=== PATIENT | male | born 1935 | race Caucasian/White ===

== ENCOUNTER 2018-06-25 13:09 | Inpatient (IN) | payer MEDICARE, MEDICAID ==
[~2018-06-25] VITALS: Ht 182.9 cm; Wt 88.5 kg
[2018-06-25] MEDS ORDERED: Sodium Chloride 500ML 500 ML IV ONE (13:28)
[2018-06-25] MEDS ORDERED: Morphine Sulfate 2mg/ml Inj IVP ONE (13:30)
[2018-06-25] MEDS ORDERED: Isovue-300 100ml vial INJ PRN (13:30)
[2018-06-25 13:54] VITALS: BP 106/64
[2018-06-25 14:21] LABS: HEMATOCRIT 41.4 % (42.0-52.0); HEMOGLOBIN 13.9 G/DL (14.2-18.0); MEAN CORPUSCULAR VOLUME 92 FL (80-99); PLATELET COUNT 175 K/UL (150-450); RED BLOOD COUNT 4.51 M/UL (4.70-6.10)
[2018-06-25 14:23] LABS: WHITE BLOOD COUNT 34.6 K/UL (4.8-10.8)
[2018-06-25 14:41] LABS: ANION GAP 13 mmol/L (5-15); BLOOD UREA NITROGEN 44 mg/dL (7-18); CALCIUM 9.1 MG/DL (8.5-10.1); CARBON DIOXIDE 24 MMOL/L (21-32); CHLORIDE 100 MMOL/L (98-107); CREATININE 3.8 MG/DL (0.55-1.30); POTASSIUM 3.8 MMOL/L (3.5-5.1); SODIUM 137 MMOL/L (136-145)
[2018-06-25 14:45] LABS: ALANINE AMINOTRANSFERASE 13 U/L (12-78); ALBUMIN 2.5 G/DL (3.4-5.0); ALBUMIN/GLOBULIN RATIO 0.7 (1.0-2.7); ALKALINE PHOSPHATASE 81 U/L (46-116); ASPARTATE AMINO TRANSFERASE 10 U/L (15-37); BILIRUBIN,TOTAL 0.5 MG/DL (0.2-1.0)
[2018-06-25] MEDS ORDERED: CYMBALTA30 MG ORAL (14:46)
[2018-06-25] MEDS ORDERED: DEPAKOTE ER500 MG ORAL (14:46)
[2018-06-25] MEDS ORDERED: VITAMIN B-1100 MG ORAL (14:46)
[2018-06-25] MEDS ORDERED: SPIRONOLACTONE25 MG ORAL (14:46)
[2018-06-25] MEDS ORDERED: ROBAXIN-750750 MG PO ×2 (14:46→20:29)
[2018-06-25] MEDS ORDERED: ACIDOPHILUS CA1 EACH ORAL (14:46)
[2018-06-25] MEDS ORDERED: COLACE100 MG ORAL (14:46)
[2018-06-25] MEDS ORDERED: DUONEB 0.5-3(2.53 ML HHN ×2 (14:46→17:56)
[2018-06-25] MEDS ORDERED: ASPIR 8181 MG ORAL (14:46)
[2018-06-25] MEDS ORDERED: PROTONIX40 MG ORAL (14:46)
[2018-06-25] MEDS ORDERED: MULTIVITAMINS1 EAC8 ORAL (14:46)
[2018-06-25] MEDS ORDERED: RISPERDAL0.5 MG ORAL (14:46)
[2018-06-25] MEDS ORDERED: VITAMIN D250000 UNI1 ORAL ×2 (14:46→20:29)
[2018-06-25] MEDS ORDERED: SENOKOT8.6 MG PO (14:46)
[2018-06-25] MEDS ORDERED: CATAPRES0.1 MG ORAL ×3 (14:46→17:52)
[2018-06-25] MEDS ORDERED: TAMSULOSIN HCL0.4 MG ORAL (14:46)
[2018-06-25] MEDS ORDERED: ACETAMINOPHEN325 M1 ORAL ×2 (14:46→17:52)
[2018-06-25 15:00] VITALS: BP 115/69
--- NOTE | 2018-06-25 16:09 | Diagnostic Imaging Report ---
Indication: Abdominal pain since last night Technique: Spiral acquisitions obtained through the abdomen and pelvis. No oral contrast utilized, per emergency room physician request No IV contrast utilized, per referring physician request.. Multiplanar reconstructions were generated. Total dose length product 1005.6 mGycm. CTDIvol(s) 18.16 mGy. Dose reduction achieved using automated exposure control Comparison: None Findings: The prostate is markedly enlarged, measuring 7.4 cm transverse by 7.3 cm AP 9 cm craniocaudad. It protrudes slightly into the bladder floor. The bladder is massively distended, dome extending well above the umbilicus. There is only minimal if any bladder wall thickening. There is bilateral mild to moderate hydronephrosis and proximal hydroureter. However, the hydroureter bilaterally only appears extend to the level of the false pelvis, where there is some inflammatory stranding and both ureters be, normal in caliber distal. No definite mass or other obstructive abnormality is seen at the transition point on either side. The lack of IV contrast limits assessment of the renal parenchyma. There is a left lower pole cyst. No other renal parenchymal mass or cyst is demonstrated. There is considerable edema surrounding the proximal penile shaft, particularly dorsally, as well as some infiltration of the adjacent subcutaneous fat. Lack of enteric contrast limits assessment of the GI tract. The appendix is not clearly demonstrated, but there are no findings to suggest acute appendicitis. There is questionably wall thickening of the proximal descending colon, of the distal descending colon and sigmoid, and especially of the rectum. There is considerable infiltration of the perirectal fat. No definite evidence of diverticulosis or diverticulitis. No definite small bowel distention. The distal esophagus, stomach, duodenum are grossly unremarkable. The lack of IV contrast limits assessment of the other solid organs. The gallbladder is somewhat distended, but there is no wall thickening or pericholecystic inflammation. The liver, bile ducts are unremarkable. The pancreas is atrophic. The spleen and adrenals are unremarkable. There is marked abnormality of the lumbar spine. There is essentially obliteration and ankylosis of the L3-4 disc, and obliteration and ankylosis of a significant portion of the L2-3 disc. There is probably a compression fracture deformity of L4 and possibly of L3, although the lack of demarcation between the vertebral body and disc makes this difficult to assess. There is also some scoliotic deformity and lateral subluxation at these levels. There is considerable degenerative spondylosis elsewhere as well, as well as likely spinal stenosis of the lower lumbar spine. The included lung bases demonstrate some scarring, atelectasis, bronchiectasis, and a calcified granuloma on the left There is mild generalized edema of the subcutaneous, peritoneal, and retroperitoneal fat. Impression: Mild to moderate hydronephrosis and proximal hydroureter, massively distended bladder, and prostatomegaly. The hydronephrosis and hydroureter are probably due to chronic bladder outlet obstruction. However, the finding of normal caliber ureters distally bilaterally is somewhat unusual for this, and the possibility of unusual retroperitoneal pathology causing bilateral mid ureteral obstruction should also be considered Unusual cailin-penile edema. This could represent cellulitis or inflammation of the lower urinary tract, among other possibilities. Correlate with clinical findings Limited assessment of the GI tract, due to lack of enteric contrast administration Distal rectal wall thickening and infiltration of the perirectal fat. This could represent proctitis and/or tumor. Correlate with clinical and exam findings. More questionable wall thickening of the descending sigmoid colon, could indicate colitis Markedly abnormal lumbar spine, with ankylosis and obliteration of the L3-4 disc and portions of the L2-3 disc. Most likely secondary to chronic degenerative changes. Apparent deformities of L4 and L3 could represent age indeterminate compression fracture deformities or be on the basis of degenerative remodeling. There is also lumbar scoliotic deformity and likely spinal stenosis Pulmonary basilar scarring, atelectasis, bronchiectasis, and evidence of old granulomatous disease Evidence of mild anasarca The CT scanner at [facility] is accredited by the [employer] and the scans are performed using protocols designed to limit radiation exposure to as low as reasonably achievable to attain images of sufficient resolution adequate for diagnostic evaluation.
--- NOTE | 2018-06-25 16:29 | Diagnostic Imaging Report ---
Indication: Chest pain Technique: One view of the chest Comparison: none Findings: Lungs and pleural spaces are clear. Heart size is normal. There are degenerative changes of both shoulders Impression: No acute process
[2018-06-25] MEDS ORDERED: Piperacillin/Tazobactam 3.375 GM in NS 110 ML IVPB ONE (16:30)
[2018-06-25] MEDS ORDERED: Morphine Sulfate 2mg/ml Inj ONE (16:38)
--- NOTE | 2018-06-25 16:39 | Emergency Room Report ---
History of Present Illness General Chief Complaint: Abdominal Pain Source: Patient, Medical Record Present Illness HPI 83-year-old male presents ED for evaluation. Complaining of lower abdominal pain for several days now. Coming from assisted facility. Pain is sharp , 7 out of 10, nonradiating. Denies fevers or chills. Denies chest pain or shortness of breath. Denies nausea or vomiting. No other aggravating relieving factors. Denies any other associated symptoms Allergies: Coded Allergies: No Known Allergies (Unverified , 06/25/18) Patient History Past Medical History: HTN, seizures Pertinent Family History: none Social History: Denies: smoking, alcohol use, drug use Immunizations: UTD Reviewed Nursing Documentation: PMH: Agreed; PSxH: Agreed Nursing Documentation-PMH Past Medical History: No History, Except For Hx Hypertension: Yes Hx Seizures: Yes Review of Systems All Other Systems: negative except mentioned in HPI Physical Exam Vital Signs Date Time Temp Pulse Resp B/P (MAP) Pulse Ox O2 Delivery O2 Flow Rate FiO2 06/25/18 13:12 97.9 82 24 99/61 98 Room Air 97.9 Sp02 EP Interpretation: reviewed, normal General Appearance: no apparent distress, alert, GCS 15, non-toxic Head: normocephalic, atraumatic Eyes: bilateral eye normal inspection, bilateral eye PERRL ENT: hearing grossly normal, normal pharynx, no angioedema, normal voice Neck: full range of motion, supple/symm/no masses Respiratory: chest non-tender, lungs clear, normal breath sounds, speaking full sentences Cardiovascular #1: regular rate, rhythm, no edema Cardiovascular #2: 2+ carotid (R), 2+ carotid (L), 2+ radial (R), 2+ radial (L) , 2+ dorsalis pedis (R), 2+ dorsalis pedis (L) Gastrointestinal: normal bowel sounds, soft, non-distended, no guarding, no rebound, tenderness - surpapubic Rectal: deferred Genitourinary: normal inspection, no CVA tenderness Musculoskeletal: back normal, gait/station normal, normal range of motion, non- tender Neurologic: alert, oriented x3, responsive, motor strength/tone normal, sensory intact, speech normal Psychiatric: judgement/insight normal, memory normal, mood/affect normal, no suicidal/homicidal ideation Reflexes: 3+ bicep (R), 3+ bicep (L), 3+ tricep (R), 3+ tricep (L), 3+ knee (R) , 3+ knee (L) Skin: normal color, no rash, warm/dry, well hydrated Lymphatic: no adenopathy Medical Decision Making Diagnostic Impression: Primary Impression: Bladder outlet obstruction Additional Impressions: Hydronephrosis Qualified Codes: N13.30 - Unspecified hydronephrosis Renal insufficiency Colitis ER Course Hospital Course 83-year-old male presents ED for abdominal pain Differential diagnoses include: BPH, cystitis, pyelonephritis, kidney stone Clinical course 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 After initial history and physical I ordered labs, IV fluids, UA, pain medication and CT scan Labs - marked leukocytosis, Hb/Hct stable, BUN/Cr elevated Patient states too painful for Hernandez catheter. Condom catheter placed CT abdomen and pelvis - significant hydronephrosis + hydroureter. findings consistent with chronic bladder outlet dysfunction. possible peripenile edema suggesting of cellulitis. proctitis/colitis EKG - NSR, some PVCS, no acute ischeic changes interpreted by me Given antibiotics. given IVFS Case discussed with Dr. Portillo and he agreed to accept the patient to his service for further care and support I feel this is a highly complex case requiring extensive working including EKG/ Rhythm strip, Xray/CT/US, Blood/urine lab work, repeat exams while in ED, and administration of strong opiates/narcotics for pain control, admission to hospital or close patient follow up. Diagnosis - bladder outlet obstrution, hydronephrosis, renal insufficiency, colitis Patient admitted to [facility] in serious condition Labs Test 06/25/18 13:52 06/25/18 14:50 White Blood Count 34.6 K/UL (4.8-10.8) Red Blood Count 4.51 M/UL (4.70-6.10) Hemoglobin 13.9 G/DL (14.2-18.0) Hematocrit 41.4 % (42.0-52.0) Mean Corpuscular Volume 92 FL (80-99) Mean Corpuscular Hemoglobin 30.9 PG (27.0-31.0) Mean Corpuscular Hemoglobin Concent 33.7 G/DL (32.0-36.0) Red Cell Distribution Width 12.0 % (11.6-14.8) Platelet Count 175 K/UL (150-450) Mean Platelet Volume 5.8 FL (6.5-10.1) Neutrophils (%) (Auto) % (45.0-75.0) Lymphocytes (%) (Auto) % (20.0-45.0) Monocytes (%) (Auto) % (1.0-10.0) Eosinophils (%) (Auto) % (0.0-3.0) Basophils (%) (Auto) % (0.0-2.0) Differential Total Cells Counted 100 Neutrophils % (Manual) 60 % (45-75) Lymphocytes % (Manual) 32 % (20-45) Monocytes % (Manual) 7 % (1-10) Eosinophils % (Manual) 0 % (0-3) Basophils % (Manual) 0 % (0-2) Band Neutrophils 1 % (0-8) Reactive Lymphocytes Occasional Platelet Estimate Adequate Platelet Morphology Normal Red Blood Cell Morphology Normal Sodium Level 137 MMOL/L (136-145) Potassium Level 3.8 MMOL/L (3.5-5.1) Chloride Level 100 MMOL/L (98-107) Carbon Dioxide Level 24 MMOL/L (21-32) Anion Gap 13 mmol/L (5-15) Blood Urea Nitrogen 44 mg/dL (7-18) Creatinine 3.8 MG/DL (0.55-1.30) Estimat Glomerular Filtration Rate mL/min (>60) Glucose Level 170 MG/DL (74-106) Calcium Level 9.1 MG/DL (8.5-10.1) Total Bilirubin 0.5 MG/DL (0.2-1.0) Aspartate Amino Transf (AST/SGOT) 10 U/L (15-37) Alanine Aminotransferase (ALT/SGPT) 13 U/L (12-78) Alkaline Phosphatase 81 U/L (46-116) Total Protein 6.1 G/DL (6.4-8.2) Albumin 2.5 G/DL (3.4-5.0) Globulin 3.6 g/dL Albumin/Globulin Ratio 0.7 (1.0-2.7) Lipase 72 U/L (73-393) Lactic Acid Level 1.20 mmol/L (0.4-2.0) EKG Diagnostic Results Rate: normal Rhythm: NSR ST Segments: no acute changes ASA given to the pt in ED: No Rhythm Strip Diag. Results EP Interpretation: yes Rhythm: NSR, no PVC's Chest X-Ray Diagnostic Results Chest X-Ray Diagnostic Results : Chest X-Ray Ordered: Yes # of Views/Limited/Complete: 1 View Indication: Other - abd pain EP Interpretation: Yes Interpretation: no consolidation, no effusion, no pneumothorax, no acute cardiopulmonary disease Impression: No acute disease Electronically Signed by: Electronically signed by Boyd Avina MD CT/MRI/US Diagnostic Results CT/MRI/US Diagnostic Results : Imaging Test Ordered: CT A/P Impression chronic bladder outlet obstruction bilateral hydronephrosis and hydroureter peripenile edema suggesting cellulitis proctitis/colitis Last Vital Signs Date Time Temp Pulse Resp B/P (MAP) Pulse Ox O2 Delivery O2 Flow Rate FiO2 06/25/18 13:54 101 21 106/64 96 Room Air 06/25/18 13:12 97.9 97.9 Status: improved Disposition: ADMITTED INPATIENT Condition: Serious Referrals: NON PHYSICIAN (PCP) Boyd Avina MD Jun 25, 2018 16:39
[2018-06-25 17:00] VITALS: BP 97/57
--- NOTE | 2018-06-25 17:28 | Consultation ---
Consult Note Consult Note asked to eval at the request of Dr Villa 83-year-old male presents ED for evaluation. Complaining of lower abdominal pain for several days now. Coming from custodial facility. Pain is sharp , 7 out of 10, nonradiating. Denies fevers or chills. Denies chest pain or shortness of breath. Denies nausea or vomiting. No other aggravating relieving factors. Denies any other associated symptoms No Known Allergies (Unverified , 06/25/18) Past Medical History: HTN, seizures Past Medical History: No History, Except For Hx Hypertension: Yes Hx Seizures: Yes lad: WBCs 94611 Cr 3.8 normal K Assessment/Plan CT: Mild to moderate hydronephrosis and proximal hydroureter, massively distended bladder, and prostatomegaly. The hydronephrosis and hydroureter are probably due to chronic bladder outlet obstruction. However, the finding of normal caliber ureters distally bilaterally is somewhat unusual for this, and the possibility of unusual retroperitoneal pathology causing bilateral mid ureteral obstruction should also be considered Renal failure due to Obstruction Need Uro eval and preston yareli to relief obstruction and pressure Discussed with Dr Metcalf and Daisy Uro will be called IV fluids after preston in Shaun Khan MD Jun 25, 2018 17:28
[2018-06-25] MEDS ORDERED: Lidocaine HCl 2% Jelly 5ml Tube TOPIC ONE (17:45)
[2018-06-25] MEDS ORDERED: ASPIRIN81 MG ORAL (17:53)
[2018-06-25] MEDS ORDERED: DIVALPROEX SOD500 MG PO (17:55)
[2018-06-25 18:00] VITALS: BP 110/52
[2018-06-25] MEDS ORDERED: MINERAL OIL EN133 ML RC (18:01)
[2018-06-25] MEDS ORDERED: B-12500 MC1 PO (18:01)
[2018-06-25 18:27] LABS: APPEARANCE,URINE CLEAR; BILIRUBIN, URINE NEGATIVE (NEGATIVE); GLUCOSE, URINE (UA) NEGATIVE (NEGATIVE); KETONES,URINE NEGATIVE (NEGATIVE); LEUKOCYTE ESTERASE ,URINE 1+ (NEGATIVE); NITRITE,URINE NEGATIVE (NEGATIVE); PH,URINE 5 (4.5-8.0); PROTEIN,URINE NEGATIVE (NEGATIVE); UROBILINOGEN,URINE NORMAL MG/DL (0.0-1.0)
[2018-06-25 18:34] LABS: COLOR,URINE YELLOW
[2018-06-25 20:00] VITALS: BP 97/60
[2018-06-25] MEDS ORDERED: Albuterol/Ipratropium 3ml neb HHN PRN (21:00)
[2018-06-25] MEDS ORDERED: Vitamin D 50,000 units cap ORAL SCH (21:00)
[2018-06-25] MEDS ORDERED: Tamsulosin 0.4mg cap ORAL SCH ×2 (21:00)
[2018-06-25] MEDS ORDERED: Fleet's Mineral Oil Enema RECTAL PRN (21:00)
--- NOTE | 2018-06-25 21:45 | Consultation ---
DATE OF CONSULTATION: 06/25/2018 CONSULTING PHYSICIAN: Flaquito Cruz M.D. REFERRING PHYSICIAN: Blaine Villa M.D. REASON FOR EVALUATION: For evaluation of retention, hydronephrosis, and renal failure. HISTORY OF PRESENT ILLNESS: This is an 83-year-old male, who is a resident of a [place] [facility]. He was brought to the hospital because of lower abdominal pain. He was noted to have acute kidney injury. Apparently, he has a baseline chronic kidney disease also. CT scan showed enlarged prostate with bladder distention and bilateral hydronephrosis. I did speak with the ER physician, who was able to pass a 16-Sudanese coude catheter and there was return of over liter of urine. Rest of the history was obtained from the chart. PAST MEDICAL HISTORY: Significant for above, hypertension and seizures. PAST SURGICAL HISTORY: Unknown. CURRENT MEDICATIONS: Here in the hospital, he did get a dose of antibiotics, Zosyn. ALLERGIES: No known drug allergies. SOCIAL HISTORY: Resident of a [place] [facility] facility. FAMILY HISTORY: Unable to obtain. FAMILY HISTORY: Unable to obtain. PHYSICAL EXAMINATION: GENERAL: An elderly male, confused. VITAL SIGNS: Temperature is 97.9, blood pressure is 110/52, pulse is 101, and temperature is 97.9. HEENT: Normocephalic. NECK: Supple. ABDOMEN: Soft. Hernandez is in place. A 16-Sudanese urine is slightly blood tinged. The patient does appear to have a paraphimosis. EXTREMITIES: Slightly contracted. LABORATORY DATA: UA shows 5 to 10 rbc's and 2 to 4 wbc's. BUN is 44 and creatinine 3.8. I am not sure what his baseline creatinine is. DIAGNOSTIC IMAGING STUDIES: The patient had a CT scan of the abdomen and pelvis. There was evidence of [id number] bilateral hydronephrosis and massively distended bladder. The distal ureter did not appear to be significantly dilated. IMPRESSION: 1. Urinary retention. 2. Benign prostatic hypertrophy. 3. Possible neurogenic bladder. 4. Renal insufficiency, which appears to be acute on chronic. 5. Hematuria. 6. Mild pyuria. 7. Hydronephrosis. 8. Paraphimosis. PLAN AND DISCUSSION: Again, Hernandez catheter is in place. It is draining urine. It is slightly blood tinged, but it is clearing. No active bleeding at this time. I did reduce the paraphimosis at the bedside. At this time, it was recommend keeping the Hernandez catheter indwelling with monitoring of renal function. He may have a postobstructive diuresis and may need fluids. I will also add Flomax and finasteride. He can have a cystoscopy in the future. Thank you for this consultation. Flaquito Cruz M.D. DR: LAW JOB#: [id number] CC:
[2018-06-25] MEDS: Depakote 500mg tab ORAL SCH (21:59)
--- NOTE | 2018-06-25 23:26 | History and Physical ---
History of Present Illness General Date patient seen: Jun 25, 2018 Time patient seen: 21:00 Reason for Hospitalization: Abdominal Pain Present Illness HPI 83 yo man transferred from SNF for lower abdominal pain x 2-3 days Noted to be in urinary retention in the ED with CT scan showing hydronephrosis. Urology consulted and Hernandez placed after some difficulty secondary to swelling Notes improved abdominal discomfort No chest pain or dyspnea Poor historian PMHx: Dementia, CKD, HTN, Seizures, Depression PSHx: Unknown FHx: Reviewed; not pertinent for this encounter SHx: No tobacco/EtOH Resident of SNF Allergies: Coded Allergies: No Known Allergies (Unverified , 06/25/18) Medication History Scheduled Acidophilus/Pectin, [place] (Acidophilus [place]), 1 TAB ORAL BID, (Reported) Aspirin* (Aspirin*), 81 MG ORAL DAILY, (Reported) Divalproex Sodium (Divalproex Sodium), 500 MG PO BID, (Reported) Docusate Sodium* (Colace*), 100 MG ORAL DAILY, (Reported) Duloxetine Hcl* (Cymbalta*), 30 MG ORAL DAILY, (Reported) Ergocalciferol (Vitamin D2)* (Vitamin D*), 50,000 UNIT ORAL ONCE A WEEK, ( Reported) Ergocalciferol (Vitamin D2)* (Vitamin D*), 50,000 UNIT ORAL ONCE A WEEK, ( Reported) Methocarbamol* (Robaxin-750*), 750 MG PO BID, (Reported) Multivitamin With Minerals (Multivitamins With Minerals*), 1 TAB ORAL DAILY, ( Reported) Pantoprazole* (Protonix*), 40 MG ORAL DAILY, (Reported) Risperidone* (Risperdal*), 0.5 MG ORAL DAILY, (Reported) Sennosides (Senokot), 8.6 MG PO BID, (Reported) Spironolactone* (Aldactone*), 25 MG ORAL DAILY, (Reported) Tamsulosin Hcl (Tamsulosin Hcl*), 0.4 MG ORAL BEDTIME, (Reported) Thiamine Hcl* (Vitamin B-1*), 100 MG ORAL DAILY, (Reported) Scheduled PRN Acetaminophen* (Acetaminophen 325MG Tablet*), 650 MG ORAL Q4H PRN for For Pain, (Reported) Acetaminophen* (Acetaminophen 325MG Tablet*), 650 MG ORAL Q4H PRN for fever T> 101F, (Reported) Clonidine Hcl* (Catapres*), 0.1 MG ORAL EVERY 8 HOURS PRN for SBP>170 or DBP>100 , (Reported) Ipratropium/Albuterol Sulfate (DuoNeb 0.5-3(2.5)mg/3ml), 3 ML HHN Q6HR PRN for Shortness of Breath, (Reported) Mineral Oil (Mineral Oil Enema), 133 ML RC DAILY PRN for Constipation, (Reported ) Discontinued Medications Cyanocobalamin (Vitamin B-12) (B-12), 500 MCG PO DAILY, (Reported) Discontinued Reason: MD discontinued med Methocarbamol* (Robaxin-750*), 750 MG PO BID, (Reported) Discontinued Reason: MD discontinued med Patient History Limited by: medical condition History Provided By: Patient, EMS Healthcare decision maker N Resuscitation status Full Code Advanced Directive on File Review of Systems Constitutional: Reports: malaise, weakness Eye: Reports: no symptoms ENT: Reports: no symptoms Respiratory: Reports: no symptoms Cardiovascular: Reports: no symptoms Gastrointestinal: Reports: abdominal pain, nausea Genitourinary: Reports: retention Musculoskeletal: Reports: no symptoms Skin: Reports: no symptoms Psychiatric: Reports: see HPI, depressed feelings Neurological: Reports: no symptoms Endocrine: Reports: no symptoms Hematologic/Lymphatic: Reports: no symptoms All Other Systems: negative except mentioned in HPI Physical Exam General Appearance: confused, mild distress Lines, tubes and drains: peripheral HEENT: normocephalic, atraumatic, anicteric, PERRL Neck: non-tender, supple Respiratory/Chest: chest wall non-tender, lungs clear Cardiovascular/Chest: normal peripheral pulses, normal rate, regular rhythm Abdomen: normal bowel sounds, soft, no mass Genitourinary/Rectal: blood at urethral meatus Extremities: normal range of motion, non-tender Skin Exam: normal pigmentation, warm/dry Neurologic: alert Lymphatic: anterior cervical Musculoskeletal: atrophy Last 24 Hour Vital Signs Date Time Temp Pulse Resp B/P (MAP) Pulse Ox O2 Delivery O2 Flow Rate FiO2 06/25/18 19:30 Nasal Cannula 2.0 06/25/18 18:54 97.9 90 21 110/52 95 Room Air 208.2 06/25/18 18:00 90 21 110/52 95 Room Air 06/25/18 17:00 88 21 97/57 95 Room Air 06/25/18 16:39 97.9 06/25/18 15:00 94 21 115/69 97 Room Air 06/25/18 13:54 101 21 106/64 96 Room Air 06/25/18 13:12 97.9 82 24 99/61 98 Room Air 97.9 Laboratory Tests Test 06/25/18 13:52 06/25/18 14:50 06/25/18 17:50 White Blood Count 34.6 K/UL (4.8-10.8) *H Red Blood Count 4.51 M/UL (4.70-6.10) L Hemoglobin 13.9 G/DL (14.2-18.0) L Hematocrit 41.4 % (42.0-52.0) L Mean Corpuscular Volume 92 FL (80-99) Mean Corpuscular Hemoglobin 30.9 PG (27.0-31.0) Mean Corpuscular Hemoglobin Concent 33.7 G/DL (32.0-36.0) Red Cell Distribution Width 12.0 % (11.6-14.8) Platelet Count 175 K/UL (150-450) Mean Platelet Volume 5.8 FL (6.5-10.1) L Neutrophils (%) (Auto) % (45.0-75.0) Lymphocytes (%) (Auto) % (20.0-45.0) Monocytes (%) (Auto) % (1.0-10.0) Eosinophils (%) (Auto) % (0.0-3.0) Basophils (%) (Auto) % (0.0-2.0) Differential Total Cells Counted 100 Neutrophils % (Manual) 60 % (45-75) Lymphocytes % (Manual) 32 % (20-45) Monocytes % (Manual) 7 % (1-10) Eosinophils % (Manual) 0 % (0-3) Basophils % (Manual) 0 % (0-2) Band Neutrophils 1 % (0-8) Reactive Lymphocytes Occasional Platelet Estimate Adequate Platelet Morphology Normal Red Blood Cell Morphology Normal Sodium Level 137 MMOL/L (136-145) Potassium Level 3.8 MMOL/L (3.5-5.1) Chloride Level 100 MMOL/L (98-107) Carbon Dioxide Level 24 MMOL/L (21-32) Anion Gap 13 mmol/L (5-15) Blood Urea Nitrogen 44 mg/dL (7-18) H Creatinine 3.8 MG/DL (0.55-1.30) H Estimat Glomerular Filtration Rate mL/min (>60) Glucose Level 170 MG/DL (74-106) H Calcium Level 9.1 MG/DL (8.5-10.1) Total Bilirubin 0.5 MG/DL (0.2-1.0) Aspartate Amino Transf (AST/SGOT) 10 U/L (15-37) L Alanine Aminotransferase (ALT/SGPT) 13 U/L (12-78) Alkaline Phosphatase 81 U/L (46-116) Total Protein 6.1 G/DL (6.4-8.2) L Albumin 2.5 G/DL (3.4-5.0) L Globulin 3.6 g/dL Albumin/Globulin Ratio 0.7 (1.0-2.7) L Lipase 72 U/L (73-393) L Lactic Acid Level 1.20 mmol/L (0.4-2.0) Urine Color Yellow Urine Appearance Clear Urine pH 5 (4.5-8.0) Urine Specific [place] 1.010 (1.005-1.035) Urine Protein Negative (NEGATIVE) Urine Glucose (UA) Negative (NEGATIVE) Urine Ketones Negative (NEGATIVE) Urine Occult Blood 5+ (NEGATIVE) H Urine Nitrite Negative (NEGATIVE) Urine Bilirubin Negative (NEGATIVE) Urine Urobilinogen Normal MG/DL (0.0-1.0) Urine Leukocyte Esterase 1+ (NEGATIVE) H Urine RBC 5-10 /HPF (0 - 0) H Urine WBC 2-4 /HPF (0 - 0) Urine Squamous Epithelial Cells None /LPF (NONE/OCC) Urine Bacteria Few /HPF (NONE) Height (Feet): 6 Height (Inches): 10.00 Weight (Pounds): 200 Medications Current Medications Medications (Trade) Dose Ordered Sig/Pérez Route PRN Reason Start Time Stop Time Status Last Admin Dose Admin Albuterol/ Ipratropium (Albuterol/ Ipratropium) 3 ml Q6H PRN HHN Shortness of Breath 06/25/18 21:00 06/30/18 20:59 Aspirin (ASA) 81 mg DAILY ORAL 06/26/18 09:00 07/26/18 08:59 Clonidine HCl (Catapres Tab) 0.1 mg Q8H PRN ORAL SBP>170 or DBP>100 06/25/18 21:00 07/25/18 20:59 Divalproex Sodium (Depakote) 500 mg BID ORAL 06/25/18 21:11 07/25/18 21:10 06/25/18 21:59 Docusate Sodium (Colace) 100 mg DAILY ORAL 06/26/18 09:00 07/26/18 08:59 Duloxetine HCl (Cymbalta) 30 mg DAILY ORAL 06/26/18 09:00 07/26/18 08:59 Ergocalciferol (Drisdol) 50,000 intlu ONCE A WEEK ORAL 07/02/18 09:00 07/25/18 20:59 Finasteride (Proscar) 5 mg DAILY ORAL 06/26/18 09:00 07/26/18 08:59 Iopamidol (Isovue-300 100ml) 100 ml NOW PRN INJ Radiology Procedure 06/25/18 13:30 Mineral Oil (Fleet's Mineral Oil Enema) 133 ml DAILYPRN PRN RECTAL Constipation 06/25/18 21:00 07/25/18 20:59 Multivitamins Therapeutic (Therapeutic Multivitamin) 1 ea DAILY ORAL 06/26/18 09:00 07/26/18 08:59 Pantoprazole (Protonix) 40 mg DAILY ORAL 06/26/18 09:00 07/26/18 08:59 Risperidone (RisperDAL) 0.5 mg Q24H ORAL 06/26/18 09:00 07/26/18 08:59 Sennosides (Senokot) 1 tab BID ORAL 06/26/18 09:00 07/26/18 08:59 Spironolactone (Aldactone) 25 mg DAILY ORAL 06/26/18 09:00 07/26/18 08:59 Tamsulosin HCl (Flomax) 0.4 mg BID ORAL 06/26/18 09:00 07/25/18 20:59 Thiamine HCl (Vitamin B1) 100 mg DAILY ORAL 06/26/18 09:00 07/26/18 08:59 Assessment/Plan Status: not improved Status Narrative 83 yo man with dementia, abdominal pain, SNF resident found to have MOISES on CKD and hydronephrosis on CT Urology input and assistance appreciated- Hernandez catheter placed in ED Assessment/Plan 1) MOISES on CKD -Nephrology input appreciated follow electrolytes and creatinine after catheterization replete as needed avoid nephorotoxins/renally dose meds 2) HTN -continue meds 3): Seizure disorder -continue meds 4)Depression/cognitive impairment -Psych consult DVT Prophylaxis: SCD's Code Status: Full Hospital Classification declaration: Based on this initial evaluation and depending on the patient's clinical course I anticipate that this patient will require hospitalization for at least 2-3 days Disposition: Once the patient is stable to leave the hospital I anticipate the patient will likely be discharged to the following environment: SNF I spent 70 minutes on this patients car and 36 minutes was dedicated to counseling and care coordination Time of note may not reflect time of encounter Blaine Villa M.D. Jun 25, 2018 23:26
[2018-06-26] VITALS: BP 94/52
[2018-06-26 04:00] VITALS: BP 104/73
[2018-06-26 06:36] LABS: HEMATOCRIT 35.7 % (42.0-52.0); HEMOGLOBIN 12.1 G/DL (14.2-18.0); MEAN CORPUSCULAR VOLUME 93 FL (80-99); PLATELET COUNT 146 K/UL (150-450); RED BLOOD COUNT 3.85 M/UL (4.70-6.10); RED CELL DISTRIBUTION WIDTH 11.9 % (11.6-14.8); WHITE BLOOD COUNT 19.5 K/UL (4.8-10.8)
[2018-06-26 07:20] LABS: ALANINE AMINOTRANSFERASE 7 U/L (12-78); ALBUMIN/GLOBULIN RATIO 0.6 (1.0-2.7); ALKALINE PHOSPHATASE 62 U/L (46-116); ANION GAP 9 mmol/L (5-15); ASPARTATE AMINO TRANSFERASE 9 U/L (15-37); BILIRUBIN,TOTAL 0.3 MG/DL (0.2-1.0); BLOOD UREA NITROGEN 31 mg/dL (7-18); CALCIUM 8.5 MG/DL (8.5-10.1); CARBON DIOXIDE 27 MMOL/L (21-32); CHLORIDE 109 MMOL/L (98-107); CHOLESTEROL 133 MG/DL (< 200); CREATININE 1.5 MG/DL (0.55-1.30); FERRITIN 223 NG/ML (8-388); HDL CHOLESTEROL 30 MG/DL (40-60); POTASSIUM 3.5 MMOL/L (3.5-5.1); SODIUM 145 MMOL/L (136-145); TRIGLYCERIDES 99 MG/DL (30-150)
[2018-06-26 07:37] LABS: % IRON SATURATION 49 % (15-50); IRON 58 ug/dL (50-175); TOTAL IRON BINDING CAPACITY 119 ug/dL (250-450)
[2018-06-26 07:56] LABS: CREATINE KINASE 18 U/L (26-308); GAMMA GLUTAMYL TRANSPEPTIDASE 14 U/L (5-85)
[2018-06-26 08:00] VITALS: BP 108/58
--- NOTE | 2018-06-26 08:56 | Urology Progress Note ---
Assessment/Plan Assessment/Plan 1. Urinary retention. 2. Benign prostatic hypertrophy. 3. Possible neurogenic bladder. 4. Renal insufficiency, which appears to be acute on chronic, improved. 5. Hematuria. 6. Mild pyuria. 7. Hydronephrosis. 8. Paraphimosis. keep preston hand irrigated and do PRN monitor renal fxn cont with flomax and proscar cysto later Subjective Allergies: Coded Allergies: No Known Allergies (Unverified , 06/25/18) Subjective all noted, confused Objective Last 24 Hour Vital Signs Date Time Temp Pulse Resp B/P (MAP) Pulse Ox O2 Delivery O2 Flow Rate FiO2 06/26/18 08:00 97.5 80 18 108/58 (75) 98 97.5 06/26/18 04:00 77 06/26/18 04:00 97.2 81 18 104/73 (83) 99 97.2 06/26/18 00:00 81 06/26/18 00:00 97.1 84 20 94/52 (66) 99 97.1 06/25/18 23:52 Nasal Cannula 2.0 28 06/25/18 20:00 87 06/25/18 20:00 97.0 80 18 97/60 (72) 99 97.0 06/25/18 19:30 Nasal Cannula 2.0 06/25/18 18:54 97.9 90 21 110/52 95 Room Air 208.2 06/25/18 18:00 90 21 110/52 95 Room Air 06/25/18 17:00 88 21 97/57 95 Room Air 06/25/18 16:39 97.9 06/25/18 15:00 94 21 115/69 97 Room Air 06/25/18 13:54 101 21 106/64 96 Room Air 06/25/18 13:12 97.9 82 24 99/61 98 Room Air 97.9 Intake and Output 06/25/18 06/26/18 19:00 07:00 Intake Total 240 ml Output Total 1700 ml 1200 ml Balance -1700 ml -960 ml Intake Oral 240 ml Output Urine Total 1700 ml 1200 ml # Bowel Movements 1 Current Medications Medications (Trade) Dose Ordered Sig/Pérez Route PRN Reason Start Time Stop Time Status Last Admin Dose Admin Albuterol/ Ipratropium (Albuterol/ Ipratropium) 3 ml Q6H PRN HHN Shortness of Breath 06/25/18 21:00 06/30/18 20:59 Aspirin (ASA) 81 mg DAILY ORAL 06/26/18 09:00 07/26/18 08:59 Clonidine HCl (Catapres Tab) 0.1 mg Q8H PRN ORAL SBP>170 or DBP>100 06/25/18 21:00 07/25/18 20:59 Divalproex Sodium (Depakote) 500 mg BID ORAL 06/25/18 21:11 07/25/18 21:10 06/25/18 21:59 Docusate Sodium (Colace) 100 mg DAILY ORAL 06/26/18 09:00 07/26/18 08:59 Duloxetine HCl (Cymbalta) 30 mg DAILY ORAL 06/26/18 09:00 07/26/18 08:59 Ergocalciferol (Drisdol) 50,000 intlu ONCE A WEEK ORAL 07/02/18 09:00 07/25/18 20:59 Finasteride (Proscar) 5 mg DAILY ORAL 06/26/18 09:00 07/26/18 08:59 Iopamidol (Isovue-300 100ml) 100 ml NOW PRN INJ Radiology Procedure 06/25/18 13:30 Mineral Oil (Fleet's Mineral Oil Enema) 133 ml DAILYPRN PRN RECTAL Constipation 06/25/18 21:00 07/25/18 20:59 Multivitamins Therapeutic (Therapeutic Multivitamin) 1 ea DAILY ORAL 06/26/18 09:00 07/26/18 08:59 Pantoprazole (Protonix) 40 mg DAILY ORAL 06/26/18 09:00 07/26/18 08:59 Risperidone (RisperDAL) 0.5 mg Q24H ORAL 06/26/18 09:00 07/26/18 08:59 Sennosides (Senokot) 1 tab BID ORAL 06/26/18 09:00 07/26/18 08:59 Spironolactone (Aldactone) 25 mg DAILY ORAL 06/26/18 09:00 07/26/18 08:59 Tamsulosin HCl (Flomax) 0.4 mg BID ORAL 06/26/18 09:00 07/25/18 20:59 Thiamine HCl (Vitamin B1) 100 mg DAILY ORAL 06/26/18 09:00 07/26/18 08:59 Laboratory Tests 06/25/18 13:52: White Blood Count 34.6*H, Red Blood Count 4.51L, Hemoglobin 13.9L, Hematocrit 41.4L, Mean Corpuscular Volume 92, Mean Corpuscular Hemoglobin 30.9, Mean Corpuscular Hemoglobin Concent 33.7, Red Cell Distribution Width 12.0, Platelet Count 175, Mean Platelet Volume 5.8L, Neutrophils (%) (Auto) , Lymphocytes (%) ( Auto) , Monocytes (%) (Auto) , Eosinophils (%) (Auto) , Basophils (%) (Auto) , Differential Total Cells Counted 100, Neutrophils % (Manual) 60, Lymphocytes % ( Manual) 32, Monocytes % (Manual) 7, Eosinophils % (Manual) 0, Basophils % ( Manual) 0, Band Neutrophils 1, Reactive Lymphocytes Occasional, Platelet Estimate Adequate, Platelet Morphology Normal, Red Blood Cell Morphology Normal , Sodium Level 137, Potassium Level 3.8, Chloride Level 100, Carbon Dioxide Level 24, Anion Gap 13, Blood Urea Nitrogen 44H, Creatinine 3.8H, Estimat Glomerular Filtration Rate , Glucose Level 170H, Calcium Level 9.1, Total Bilirubin 0.5, Aspartate Amino Transf (AST/SGOT) 10L, Alanine Aminotransferase ( ALT/SGPT) 13, Alkaline Phosphatase 81, Total Protein 6.1L, Albumin 2.5L, Globulin 3.6, Albumin/Globulin Ratio 0.7L, Lipase 72L 06/25/18 14:50: Lactic Acid Level 1.20 06/25/18 17:50: Urine Color Yellow, Urine Appearance Clear, Urine pH 5, Urine Specific [place] 1.010, Urine Protein Negative, Urine Glucose (UA) Negative, Urine Ketones Negative, Urine Occult Blood 5+H, Urine Nitrite Negative, Urine Bilirubin Negative, Urine Urobilinogen Normal, Urine Leukocyte Esterase 1+H, Urine RBC 5- 10H, Urine WBC 2-4, Urine Squamous Epithelial Cells None, Urine Bacteria Few 06/26/18 05:25: White Blood Count 19.5H, Red Blood Count 3.85L, Hemoglobin 12.1L, Hematocrit 35.7L, Mean Corpuscular Volume 93, Mean Corpuscular Hemoglobin 31.3H, Mean Corpuscular Hemoglobin Concent 33.8, Red Cell Distribution Width 11.9, Platelet Count 146L, Mean Platelet Volume 6.1L, Neutrophils (%) (Auto) , Lymphocytes (%) (Auto) , Monocytes (%) (Auto) , Eosinophils (%) (Auto) , Basophils (%) (Auto) , Differential Total Cells Counted 100, Neutrophils % (Manual) 55, Lymphocytes % ( Manual) 40, Monocytes % (Manual) 3, Eosinophils % (Manual) 2, Basophils % ( Manual) 0, Band Neutrophils 0, Platelet Estimate DecreasedL, Platelet Morphology Normal, Sodium Level 145, Potassium Level 3.5, Chloride Level 109H, Carbon Dioxide Level 27, Anion Gap 9, Blood Urea Nitrogen 31H, Creatinine 1.5#H , Estimat Glomerular Filtration Rate , Glucose Level 105, Calcium Level 8.5, Total Bilirubin 0.3, Aspartate Amino Transf (AST/SGOT) 9L, Alanine Aminotransferase (ALT/SGPT) 7L, Alkaline Phosphatase 62, Total Protein 5.1L, Albumin 2.0L, Globulin 3.1, Albumin/Globulin Ratio 0.6L, Anisocytosis 1+, Hemoglobin A1c 5.9, Uric Acid 9.9H, Phosphorus Level 3.0, Magnesium Level 1.7L, Iron Level 58, Total Iron Binding Capacity 119L, Percent Iron Saturation 49, Unsaturated Iron Binding 61L, Ferritin 223, Gamma Glutamyl Transpeptidase 14, Total Creatine Kinase 18L, Pro-B-Type Natriuretic Peptide 744H, Triglycerides Level 99, Cholesterol Level 133, LDL Cholesterol 84, HDL Cholesterol 30L, Cholesterol/HDL Ratio 4.4, Vitamin B12 Level [Pending], Folate [Pending], Thyroid Stimulating Hormone (TSH) 2.086 Height (Feet): 6 Height (Inches): 10.00 Weight (Pounds): 200 Objective exam stable, urine tyrese RICHIE PERRIN Jun 26, 2018 08:56
[2018-06-26] MEDS ORDERED: Spironolactone 25mg tab ORAL SCH (09:00)
[2018-06-26] MEDS ORDERED: Docusate 100mg cap ORAL SCH (09:00)
--- NOTE | 2018-06-26 09:05 | Nephrology Progress Note ---
Assessment/Plan Problem List: (1) Bladder outlet obstruction (2) Acute renal failure (ARF) Assessment: Cr lower after preston (3) Hydronephrosis (4) Leukocytosis Assessment: declining Assessment 1. Urinary retention. 2. Benign prostatic hypertrophy. 3. Possible neurogenic bladder. 4. Renal insufficiency, which appears to be acute on chronic. 5. Hematuria. 6. Mild pyuria. 7. Hydronephrosis. 8. Paraphimosis. Plan bolus IV adjust BP meds- monitor renal parameters monitor WBCs urine culture Rocephin Subjective ROS Limited/Unobtainable: No Constitutional: Reports: malaise Objective Objective Last 24 Hour Vital Signs Date Time Temp Pulse Resp B/P (MAP) Pulse Ox O2 Delivery O2 Flow Rate FiO2 06/26/18 08:00 97.5 80 18 108/58 (75) 98 97.5 06/26/18 04:00 77 06/26/18 04:00 97.2 81 18 104/73 (83) 99 97.2 06/26/18 00:00 81 06/26/18 00:00 97.1 84 20 94/52 (66) 99 97.1 06/25/18 23:52 Nasal Cannula 2.0 28 06/25/18 20:00 87 06/25/18 20:00 97.0 80 18 97/60 (72) 99 97.0 06/25/18 19:30 Nasal Cannula 2.0 06/25/18 18:54 97.9 90 21 110/52 95 Room Air 208.2 06/25/18 18:00 90 21 110/52 95 Room Air 06/25/18 17:00 88 21 97/57 95 Room Air 06/25/18 16:39 97.9 06/25/18 15:00 94 21 115/69 97 Room Air 06/25/18 13:54 101 21 106/64 96 Room Air 06/25/18 13:12 97.9 82 24 99/61 98 Room Air 97.9 Intake and Output 06/25/18 06/26/18 19:00 07:00 Intake Total 240 ml Output Total 1700 ml 1200 ml Balance -1700 ml -960 ml Intake Oral 240 ml Output Urine Total 1700 ml 1200 ml # Bowel Movements 1 Laboratory Tests 06/25/18 13:52: White Blood Count 34.6*H, Red Blood Count 4.51L, Hemoglobin 13.9L, Hematocrit 41.4L, Mean Corpuscular Volume 92, Mean Corpuscular Hemoglobin 30.9, Mean Corpuscular Hemoglobin Concent 33.7, Red Cell Distribution Width 12.0, Platelet Count 175, Mean Platelet Volume 5.8L, Neutrophils (%) (Auto) , Lymphocytes (%) ( Auto) , Monocytes (%) (Auto) , Eosinophils (%) (Auto) , Basophils (%) (Auto) , Differential Total Cells Counted 100, Neutrophils % (Manual) 60, Lymphocytes % ( Manual) 32, Monocytes % (Manual) 7, Eosinophils % (Manual) 0, Basophils % ( Manual) 0, Band Neutrophils 1, Reactive Lymphocytes Occasional, Platelet Estimate Adequate, Platelet Morphology Normal, Red Blood Cell Morphology Normal , Sodium Level 137, Potassium Level 3.8, Chloride Level 100, Carbon Dioxide Level 24, Anion Gap 13, Blood Urea Nitrogen 44H, Creatinine 3.8H, Estimat Glomerular Filtration Rate , Glucose Level 170H, Calcium Level 9.1, Total Bilirubin 0.5, Aspartate Amino Transf (AST/SGOT) 10L, Alanine Aminotransferase ( ALT/SGPT) 13, Alkaline Phosphatase 81, Total Protein 6.1L, Albumin 2.5L, Globulin 3.6, Albumin/Globulin Ratio 0.7L, Lipase 72L 06/25/18 14:50: Lactic Acid Level 1.20 06/25/18 17:50: Urine Color Yellow, Urine Appearance Clear, Urine pH 5, Urine Specific [place] 1.010, Urine Protein Negative, Urine Glucose (UA) Negative, Urine Ketones Negative, Urine Occult Blood 5+H, Urine Nitrite Negative, Urine Bilirubin Negative, Urine Urobilinogen Normal, Urine Leukocyte Esterase 1+H, Urine RBC 5- 10H, Urine WBC 2-4, Urine Squamous Epithelial Cells None, Urine Bacteria Few 06/26/18 05:25: White Blood Count 19.5H, Red Blood Count 3.85L, Hemoglobin 12.1L, Hematocrit 35.7L, Mean Corpuscular Volume 93, Mean Corpuscular Hemoglobin 31.3H, Mean Corpuscular Hemoglobin Concent 33.8, Red Cell Distribution Width 11.9, Platelet Count 146L, Mean Platelet Volume 6.1L, Neutrophils (%) (Auto) , Lymphocytes (%) (Auto) , Monocytes (%) (Auto) , Eosinophils (%) (Auto) , Basophils (%) (Auto) , Differential Total Cells Counted 100, Neutrophils % (Manual) 55, Lymphocytes % ( Manual) 40, Monocytes % (Manual) 3, Eosinophils % (Manual) 2, Basophils % ( Manual) 0, Band Neutrophils 0, Platelet Estimate DecreasedL, Platelet Morphology Normal, Sodium Level 145, Potassium Level 3.5, Chloride Level 109H, Carbon Dioxide Level 27, Anion Gap 9, Blood Urea Nitrogen 31H, Creatinine 1.5#H , Estimat Glomerular Filtration Rate , Glucose Level 105, Calcium Level 8.5, Total Bilirubin 0.3, Aspartate Amino Transf (AST/SGOT) 9L, Alanine Aminotransferase (ALT/SGPT) 7L, Alkaline Phosphatase 62, Total Protein 5.1L, Albumin 2.0L, Globulin 3.1, Albumin/Globulin Ratio 0.6L, Anisocytosis 1+, Hemoglobin A1c 5.9, Uric Acid 9.9H, Phosphorus Level 3.0, Magnesium Level 1.7L, Iron Level 58, Total Iron Binding Capacity 119L, Percent Iron Saturation 49, Unsaturated Iron Binding 61L, Ferritin 223, Gamma Glutamyl Transpeptidase 14, Total Creatine Kinase 18L, Pro-B-Type Natriuretic Peptide 744H, Triglycerides Level 99, Cholesterol Level 133, LDL Cholesterol 84, HDL Cholesterol 30L, Cholesterol/HDL Ratio 4.4, Vitamin B12 Level 637, Folate 19.7, Thyroid Stimulating Hormone (TSH) 2.086 Height (Feet): 6 Height (Inches): 10.00 Weight (Pounds): 200 General Appearance: no apparent distress Cardiovascular: normal rate Respiratory/Chest: lungs clear Abdomen: soft Genitourinary/Rectal: other - preston in - Urine clear Shaun Khan MD Jun 26, 2018 09:05
[2018-06-26] MEDS ORDERED: cefTRIAXone 1 GM in D5W 55 ML IVPB ONE (09:15)
[2018-06-26] MEDS: DULoxetine 30mg cap ORAL SCH (09:22)
[2018-06-26] MEDS: Multivitamin w/Minerals tab ORAL SCH (09:23)
[2018-06-26] MEDS: Depakote 500mg tab ORAL SCH ×2 (09:23→18:10)
[2018-06-26] MEDS: Aspirin Baby 81mg ORAL SCH (09:23)
[2018-06-26] MEDS: Thiamine 100mg tab ORAL SCH (09:23)
[2018-06-26] MEDS: Sennosides 8.6mg ORAL SCH ×2 (09:23→18:10)
[2018-06-26] MEDS: Tamsulosin 0.4mg cap ORAL SCH ×2 (09:23→18:10)
[2018-06-26] MEDS: cefTRIAXone 1 GM in D5W 55 ML IVPB SCH (11:47)
[2018-06-26 12:00] VITALS: BP 96/47
[2018-06-26] MEDS: Docusate 100mg cap ORAL SCH ×2 (12:32→18:10)
--- NOTE | 2018-06-26 13:30 | General Progress Note ---
Assessment/Plan Status: progressing Status Narrative 83 yo man with dementia, abdominal pain, SNF resident found to have MOISES on CKD and hydronephrosis on CT Urology input and assistance appreciated- Hernandez catheter placed in ED Assessment/Plan 1) MOISES on CKD -Nephrology input appreciated follow electrolytes and creatinine after catheterization- improving replete as needed avoid nephrotoxins/renally dose meds 2) UTI/leukocytosis/rule out sepsis -pyuria and leukocytosis noted- ceftriaxone started -lactic acid normalized -wbc improving today -afebrile 2) HTN -continue meds -Nephrology assistance appreciated 3): Seizure disorder -continue meds 4)Depression/cognitive impairment -Psych consult/recs appreciated DVT Prophylaxis: scd Code status: full Hospital Classification declaration: Based on this initial evaluation, and depending on the patient's clinical course, I anticipate that this patient will require hospitalization for 2-3 days. Disposition: Once the patient is stable to leave the hospital, I anticipate the patient will likely be discharged to the following environment:SNF I spent 45 minutes on this patient's case, and 23 minutes was dedicated to counseling and/or care coordination. Time of note may not reflect time of encounter. Subjective Date patient seen: Jun 26, 2018 Time patient seen: 13:30 ROS Limited/Unobtainable: Yes Constitutional: Reports: no symptoms HEENT: Reports: no symptoms Cardiovascular: Reports: no symptoms Respiratory: Reports: no symptoms Gastrointestinal/Abdominal: Reports: poor appetite Genitourinary: Reports: burning Neurologic/Psychiatric: Reports: pre-existing deficit Endocrine: Reports: no symptoms Hematologic/Lymphatic: Reports: no symptoms Allergies: Coded Allergies: No Known Allergies (Unverified , 06/25/18) All Systems: reviewed and negative except above Subjective Events of overnight noted Chart reviewed Catheter with good urine output Symptoms improved Objective Last 24 Hour Vital Signs Date Time Temp Pulse Resp B/P (MAP) Pulse Ox O2 Delivery O2 Flow Rate FiO2 06/26/18 10:00 97 Nasal Cannula 2.0 28 06/26/18 10:00 Nasal Cannula 2.0 28 06/26/18 09:00 Nasal Cannula 2.0 06/26/18 08:00 97.5 80 18 108/58 (75) 98 97.5 06/26/18 04:00 77 06/26/18 04:00 97.2 81 18 104/73 (83) 99 97.2 06/26/18 00:00 81 06/26/18 00:00 97.1 84 20 94/52 (66) 99 97.1 06/25/18 23:52 Nasal Cannula 2.0 28 06/25/18 20:00 87 06/25/18 20:00 97.0 80 18 97/60 (72) 99 97.0 06/25/18 19:30 Nasal Cannula 2.0 06/25/18 18:54 97.9 90 21 110/52 95 Room Air 208.2 06/25/18 18:00 90 21 110/52 95 Room Air 06/25/18 17:00 88 21 97/57 95 Room Air 06/25/18 16:39 97.9 06/25/18 15:00 94 21 115/69 97 Room Air 06/25/18 13:54 101 21 106/64 96 Room Air Intake and Output 06/25/18 06/26/18 19:00 07:00 Intake Total 240 ml Output Total 1700 ml 1200 ml Balance -1700 ml -960 ml Intake Oral 240 ml Output Urine Total 1700 ml 1200 ml # Bowel Movements 1 Laboratory Tests 06/25/18 13:52: White Blood Count 34.6*H, Red Blood Count 4.51L, Hemoglobin 13.9L, Hematocrit 41.4L, Mean Corpuscular Volume 92, Mean Corpuscular Hemoglobin 30.9, Mean Corpuscular Hemoglobin Concent 33.7, Red Cell Distribution Width 12.0, Platelet Count 175, Mean Platelet Volume 5.8L, Neutrophils (%) (Auto) , Lymphocytes (%) ( Auto) , Monocytes (%) (Auto) , Eosinophils (%) (Auto) , Basophils (%) (Auto) , Differential Total Cells Counted 100, Neutrophils % (Manual) 60, Lymphocytes % ( Manual) 32, Monocytes % (Manual) 7, Eosinophils % (Manual) 0, Basophils % ( Manual) 0, Band Neutrophils 1, Reactive Lymphocytes Occasional, Platelet Estimate Adequate, Platelet Morphology Normal, Red Blood Cell Morphology Normal , Sodium Level 137, Potassium Level 3.8, Chloride Level 100, Carbon Dioxide Level 24, Anion Gap 13, Blood Urea Nitrogen 44H, Creatinine 3.8H, Estimat Glomerular Filtration Rate , Glucose Level 170H, Calcium Level 9.1, Total Bilirubin 0.5, Aspartate Amino Transf (AST/SGOT) 10L, Alanine Aminotransferase ( ALT/SGPT) 13, Alkaline Phosphatase 81, Total Protein 6.1L, Albumin 2.5L, Globulin 3.6, Albumin/Globulin Ratio 0.7L, Lipase 72L 06/25/18 14:50: Lactic Acid Level 1.20 06/25/18 17:50: Urine Color Yellow, Urine Appearance Clear, Urine pH 5, Urine Specific [place] 1.010, Urine Protein Negative, Urine Glucose (UA) Negative, Urine Ketones Negative, Urine Occult Blood 5+H, Urine Nitrite Negative, Urine Bilirubin Negative, Urine Urobilinogen Normal, Urine Leukocyte Esterase 1+H, Urine RBC 5- 10H, Urine WBC 2-4, Urine Squamous Epithelial Cells None, Urine Bacteria Few 06/26/18 05:25: White Blood Count 19.5H, Red Blood Count 3.85L, Hemoglobin 12.1L, Hematocrit 35.7L, Mean Corpuscular Volume 93, Mean Corpuscular Hemoglobin 31.3H, Mean Corpuscular Hemoglobin Concent 33.8, Red Cell Distribution Width 11.9, Platelet Count 146L, Mean Platelet Volume 6.1L, Neutrophils (%) (Auto) , Lymphocytes (%) (Auto) , Monocytes (%) (Auto) , Eosinophils (%) (Auto) , Basophils (%) (Auto) , Differential Total Cells Counted 100, Neutrophils % (Manual) 55, Lymphocytes % ( Manual) 40, Monocytes % (Manual) 3, Eosinophils % (Manual) 2, Basophils % ( Manual) 0, Band Neutrophils 0, Platelet Estimate DecreasedL, Platelet Morphology Normal, Sodium Level 145, Potassium Level 3.5, Chloride Level 109H, Carbon Dioxide Level 27, Anion Gap 9, Blood Urea Nitrogen 31H, Creatinine 1.5#H , Estimat Glomerular Filtration Rate , Glucose Level 105, Calcium Level 8.5, Total Bilirubin 0.3, Aspartate Amino Transf (AST/SGOT) 9L, Alanine Aminotransferase (ALT/SGPT) 7L, Alkaline Phosphatase 62, Total Protein 5.1L, Albumin 2.0L, Globulin 3.1, Albumin/Globulin Ratio 0.6L, Anisocytosis 1+, Hemoglobin A1c 5.9, Uric Acid 9.9H, Phosphorus Level 3.0, Magnesium Level 1.7L, Iron Level 58, Total Iron Binding Capacity 119L, Percent Iron Saturation 49, Unsaturated Iron Binding 61L, Ferritin 223, Gamma Glutamyl Transpeptidase 14, Total Creatine Kinase 18L, Pro-B-Type Natriuretic Peptide 744H, Triglycerides Level 99, Cholesterol Level 133, LDL Cholesterol 84, HDL Cholesterol 30L, Cholesterol/HDL Ratio 4.4, Vitamin B12 Level 637, Folate 19.7, Thyroid Stimulating Hormone (TSH) 2.086 Height (Feet): 6 Height (Inches): 10.00 Weight (Pounds): 200 General Appearance: no apparent distress, confused EENT: PERRL/EOMI Neck: non-tender, supple Cardiovascular: normal peripheral pulses, normal rate, regular rhythm Respiratory/Chest: chest wall non-tender, lungs clear, normal breath sounds Abdomen: normal bowel sounds, non tender, soft Pelvis: normal external exam Genitourinary/Rectal: blood at urethral meatus, other - +Hernandez in place Extremities: normal range of motion Edema: no edema noted Arm (L), no edema noted Arm (R) Edema: trace edema Neurologic: alert Skin: normal pigmentation, warm/dry Lymphatic: normal anterior cervical (L), normal anterior cervical (R) Blaine Villa M.D. Jun 26, 2018 13:30
[2018-06-26 16:00] VITALS: BP 105/51
--- NOTE | 2018-06-26 17:37 | Diagnostic Imaging Report ---
Indication: Acute renal failure Technique: Grayscale and duplex images of the kidneys, retroperitoneum, and bladder were obtained. Comparison: CT scan 06/25/2018 Findings: Right kidney measures 12.6 cm in length. Left kidney measures 13.4 cm in length. Both kidneys demonstrate normal echogenicity. The hydronephrosis demonstrated on the prior CT scan is no longer evident bilaterally, although there is mild collecting system fullness bilaterally. One or more parapelvic cysts is seen in the left renal lower pole, also demonstrated on prior CT. Normal inferior vena cava. Bladder has largely been decompressed since prior study by a Hernandez catheter, although there is still 109 mL of bladder volume despite Hernandez catheter. Impression: Since the CT scan of 06/25/2018, interim decompression of previously massively distended bladder with a Hernandez catheter Apparent interim resolution of bilateral hydronephrosis, likely related to the above. Left lower pole parapelvic cyst, also seen on prior CT.
--- NOTE | 2018-06-26 18:31 | Consultation ---
History of Present Illness General Date patient seen: Jun 26, 2018 Chief Complaint: Abdominal Pain Present Illness HPI 83-year-old male presents ED for evaluation. Complaining of lower abdominal pain for several days now. the pt has depressive sxs and is on Cymbalta Allergies: Coded Allergies: No Known Allergies (Unverified , 06/25/18) Medication History Scheduled Acidophilus/Pectin, [place] (Acidophilus Caplet), 1 TAB ORAL BID, (Reported) Aspirin* (Aspirin*), 81 MG ORAL DAILY, (Reported) Divalproex Sodium (Divalproex Sodium), 500 MG PO BID, (Reported) Docusate Sodium* (Colace*), 100 MG ORAL DAILY, (Reported) Duloxetine Hcl* (Cymbalta*), 30 MG ORAL DAILY, (Reported) Ergocalciferol (Vitamin D2)* (Vitamin D*), 50,000 UNIT ORAL ONCE A WEEK, ( Reported) Ergocalciferol (Vitamin D2)* (Vitamin D*), 50,000 UNIT ORAL ONCE A WEEK, ( Reported) Methocarbamol* (Robaxin-750*), 750 MG PO BID, (Reported) Multivitamin With Minerals (Multivitamins With Minerals*), 1 TAB ORAL DAILY, ( Reported) Pantoprazole* (Protonix*), 40 MG ORAL DAILY, (Reported) Risperidone* (Risperdal*), 0.5 MG ORAL DAILY, (Reported) Sennosides (Senokot), 8.6 MG PO BID, (Reported) Spironolactone* (Aldactone*), 25 MG ORAL DAILY, (Reported) Tamsulosin Hcl (Tamsulosin Hcl*), 0.4 MG ORAL BEDTIME, (Reported) Thiamine Hcl* (Vitamin B-1*), 100 MG ORAL DAILY, (Reported) Scheduled PRN Acetaminophen* (Acetaminophen 325MG Tablet*), 650 MG ORAL Q4H PRN for For Pain, (Reported) Acetaminophen* (Acetaminophen 325MG Tablet*), 650 MG ORAL Q4H PRN for fever T> 101F, (Reported) Clonidine Hcl* (Catapres*), 0.1 MG ORAL EVERY 8 HOURS PRN for SBP>170 or DBP>100 , (Reported) Ipratropium/Albuterol Sulfate (DuoNeb 0.5-3(2.5)mg/3ml), 3 ML HHN Q6HR PRN for Shortness of Breath, (Reported) Mineral Oil (Mineral Oil Enema), 133 ML RC DAILY PRN for Constipation, (Reported ) Discontinued Medications Cyanocobalamin (Vitamin B-12) (B-12), 500 MCG PO DAILY, (Reported) Discontinued Reason: MD discontinued med Methocarbamol* (Robaxin-750*), 750 MG PO BID, (Reported) Discontinued Reason: MD discontinued med Patient History History Provided By: Patient, Medical Record, PMD Healthcare decision maker N Resuscitation status Full Code Advanced Directive on File Review of Systems Psychiatric: Reports: prior hx, anxiety, depressed feelings Physical Exam General Appearance: alert Last 24 Hour Vital Signs Date Time Temp Pulse Resp B/P (MAP) Pulse Ox O2 Delivery O2 Flow Rate FiO2 06/26/18 16:00 97.4 82 18 105/51 (69) 97 97.4 06/26/18 12:00 77 06/26/18 12:00 97.2 71 18 96/47 (63) 97 97.2 06/26/18 10:00 97 Nasal Cannula 2.0 28 06/26/18 10:00 Nasal Cannula 2.0 28 06/26/18 09:00 Nasal Cannula 2.0 06/26/18 08:00 85 06/26/18 08:00 97.5 80 18 108/58 (75) 98 97.5 06/26/18 04:00 77 06/26/18 04:00 97.2 81 18 104/73 (83) 99 97.2 06/26/18 00:00 81 06/26/18 00:00 97.1 84 20 94/52 (66) 99 97.1 06/25/18 23:52 Nasal Cannula 2.0 28 06/25/18 20:00 87 06/25/18 20:00 97.0 80 18 97/60 (72) 99 97.0 06/25/18 19:30 Nasal Cannula 2.0 06/25/18 18:54 97.9 90 21 110/52 95 Room Air 208.2 Intake and Output 06/25/18 06/26/18 19:00 07:00 Intake Total 240 ml Output Total 1700 ml 1200 ml Balance -1700 ml -960 ml Intake Oral 240 ml Output Urine Total 1700 ml 1200 ml # Bowel Movements 1 Laboratory Tests Test 06/26/18 05:25 White Blood Count 19.5 K/UL (4.8-10.8) H Red Blood Count 3.85 M/UL (4.70-6.10) L Hemoglobin 12.1 G/DL (14.2-18.0) L Hematocrit 35.7 % (42.0-52.0) L Mean Corpuscular Volume 93 FL (80-99) Mean Corpuscular Hemoglobin 31.3 PG (27.0-31.0) H Mean Corpuscular Hemoglobin Concent 33.8 G/DL (32.0-36.0) Red Cell Distribution Width 11.9 % (11.6-14.8) Platelet Count 146 K/UL (150-450) L Mean Platelet Volume 6.1 FL (6.5-10.1) L Neutrophils (%) (Auto) % (45.0-75.0) Lymphocytes (%) (Auto) % (20.0-45.0) Monocytes (%) (Auto) % (1.0-10.0) Eosinophils (%) (Auto) % (0.0-3.0) Basophils (%) (Auto) % (0.0-2.0) Differential Total Cells Counted 100 Neutrophils % (Manual) 55 % (45-75) Lymphocytes % (Manual) 40 % (20-45) Monocytes % (Manual) 3 % (1-10) Eosinophils % (Manual) 2 % (0-3) Basophils % (Manual) 0 % (0-2) Band Neutrophils 0 % (0-8) Platelet Estimate Decreased L Platelet Morphology Normal Anisocytosis 1+ Sodium Level 145 MMOL/L (136-145) Potassium Level 3.5 MMOL/L (3.5-5.1) Chloride Level 109 MMOL/L (98-107) H Carbon Dioxide Level 27 MMOL/L (21-32) Anion Gap 9 mmol/L (5-15) Blood Urea Nitrogen 31 mg/dL (7-18) H Creatinine 1.5 MG/DL (0.55-1.30) #H Estimat Glomerular Filtration Rate mL/min (>60) Glucose Level 105 MG/DL (74-106) Hemoglobin A1c 5.9 % (4.3-6.0) Uric Acid 9.9 MG/DL (2.6-7.2) H Calcium Level 8.5 MG/DL (8.5-10.1) Phosphorus Level 3.0 MG/DL (2.5-4.9) Magnesium Level 1.7 MG/DL (1.8-2.4) L Iron Level 58 ug/dL (50-175) Total Iron Binding Capacity 119 ug/dL (250-450) L Percent Iron Saturation 49 % (15-50) Unsaturated Iron Binding 61 ug/dL (112-346) L Ferritin 223 NG/ML (8-388) Total Bilirubin 0.3 MG/DL (0.2-1.0) Gamma Glutamyl Transpeptidase 14 U/L (5-85) Aspartate Amino Transf (AST/SGOT) 9 U/L (15-37) L Alanine Aminotransferase (ALT/SGPT) 7 U/L (12-78) L Alkaline Phosphatase 62 U/L (46-116) Total Creatine Kinase 18 U/L (26-308) L Pro-B-Type Natriuretic Peptide 744 pg/mL (0-125) H Total Protein 5.1 G/DL (6.4-8.2) L Albumin 2.0 G/DL (3.4-5.0) L Globulin 3.1 g/dL Albumin/Globulin Ratio 0.6 (1.0-2.7) L Triglycerides Level 99 MG/DL (30-150) Cholesterol Level 133 MG/DL (< 200) LDL Cholesterol 84 mg/dL (<100) HDL Cholesterol 30 MG/DL (40-60) L Cholesterol/HDL Ratio 4.4 (3.3-4.4) Vitamin B12 Level 637 PG/ML (193-986) Folate 19.7 NG/ML (8.6-58.9) Thyroid Stimulating Hormone (TSH) 2.086 uiU/mL (0.358-3.740) Height (Feet): 6 Height (Inches): 10.00 Weight (Pounds): 200 Medications Current Medications Medications (Trade) Dose Ordered Sig/Pérez Route PRN Reason Start Time Stop Time Status Last Admin Dose Admin Albuterol/ Ipratropium (Albuterol/ Ipratropium) 3 ml Q6H PRN HHN Shortness of Breath 06/25/18 21:00 06/30/18 20:59 Aspirin (ASA) 81 mg DAILY ORAL 06/26/18 09:00 07/26/18 08:59 06/26/18 09:23 Ceftriaxone Sodium 1 gm/ Dextrose 55 ml @ 110 mls/hr Q24H IVPB 06/26/18 10:30 07/03/18 10:29 06/26/18 11:47 Clonidine HCl (Catapres Tab) 0.1 mg Q8H PRN ORAL SBP>170 or DBP>100 06/25/18 21:00 07/25/18 20:59 Divalproex Sodium (Depakote) 500 mg BID ORAL 06/25/18 21:11 07/25/18 21:10 06/26/18 18:10 Docusate Sodium (Colace) 100 mg TID ORAL 06/26/18 13:00 07/26/18 08:59 06/26/18 18:10 Duloxetine HCl (Cymbalta) 30 mg DAILY ORAL 06/26/18 09:00 07/26/18 08:59 06/26/18 09:22 Ergocalciferol (Drisdol) 50,000 intlu ONCE A WEEK ORAL 07/02/18 09:00 07/25/18 20:59 Finasteride (Proscar) 5 mg DAILY ORAL 06/26/18 09:00 07/26/18 08:59 06/26/18 09:22 Iopamidol (Isovue-300 100ml) 100 ml NOW PRN INJ Radiology Procedure 06/25/18 13:30 Mineral Oil (Fleet's Mineral Oil Enema) 133 ml DAILYPRN PRN RECTAL Constipation 06/25/18 21:00 07/25/18 20:59 Multivitamins Therapeutic (Therapeutic Multivitamin) 1 ea DAILY ORAL 06/26/18 09:00 07/26/18 08:59 06/26/18 09:23 Pantoprazole (Protonix) 40 mg DAILY ORAL 06/26/18 09:00 07/26/18 08:59 06/26/18 09:23 Risperidone (RisperDAL) 0.5 mg Q24H ORAL 06/26/18 09:00 07/26/18 08:59 06/26/18 09:22 Sennosides (Senokot) 1 tab BID ORAL 06/26/18 09:00 07/26/18 08:59 06/26/18 18:10 Tamsulosin HCl (Flomax) 0.4 mg BID ORAL 06/26/18 09:00 07/25/18 20:59 06/26/18 18:10 Thiamine HCl (Vitamin B1) 100 mg DAILY ORAL 06/26/18 09:00 07/26/18 08:59 06/26/18 09:23 Assessment/Plan Assessment/Plan MDD cont cymbalta provided ro/Mary Dowling MD Jun 26, 2018 18:31
[2018-06-26 20:00] VITALS: BP 111/65
[2018-06-26] MEDS ORDERED: Norco 5mg/325mg tab ORAL PRN (22:30)
[2018-06-27] VITALS: BP 118/71
[2018-06-27 04:00] VITALS: BP 122/68
[2018-06-27 06:40] LABS: EOSINOPHILS % (AUTO) 1.9 % (0.0-3.0); HEMATOCRIT 32.8 % (42.0-52.0); LYMPHOCYTES % (AUTO) 52.1 % (20.0-45.0); MEAN CORPUSCULAR VOLUME 93 FL (80-99); MONOCYTES % (AUTO) 4.7 % (1.0-10.0); NEUTROPHILS % (AUTO) 40.4 % (45.0-75.0); PLATELET COUNT 136 K/UL (150-450); RED BLOOD COUNT 3.54 M/UL (4.70-6.10); RED CELL DISTRIBUTION WIDTH 12.2 % (11.6-14.8); WHITE BLOOD COUNT 17.4 K/UL (4.8-10.8)
[2018-06-27 07:15] LABS: ALANINE AMINOTRANSFERASE 9 U/L (12-78); ALBUMIN 2.2 G/DL (3.4-5.0); ALBUMIN/GLOBULIN RATIO 0.8 (1.0-2.7); ALKALINE PHOSPHATASE 59 U/L (46-116); ANION GAP 6 mmol/L (5-15); ASPARTATE AMINO TRANSFERASE 6 U/L (15-37); BILIRUBIN,TOTAL 0.3 MG/DL (0.2-1.0); BLOOD UREA NITROGEN 13 mg/dL (7-18); CARBON DIOXIDE 29 MMOL/L (21-32); CHLORIDE 108 MMOL/L (98-107); CREATININE 0.6 MG/DL (0.55-1.30); PHOSPHORUS 1.6 MG/DL (2.5-4.9); POTASSIUM 3.4 MMOL/L (3.5-5.1); SODIUM 143 MMOL/L (136-145)
[2018-06-27 08:00] VITALS: BP 105/64
[2018-06-27] MEDS: Aspirin Baby 81mg ORAL SCH (08:38)
[2018-06-27] MEDS: Multivitamin w/Minerals tab ORAL SCH (08:38)
[2018-06-27] MEDS: Tamsulosin 0.4mg cap ORAL SCH ×2 (08:38→20:16)
[2018-06-27] MEDS: DULoxetine 30mg cap ORAL SCH (08:38)
[2018-06-27] MEDS: Thiamine 100mg tab ORAL SCH (08:39)
[2018-06-27] MEDS: Depakote 500mg tab ORAL SCH ×2 (08:39→18:24)
[2018-06-27] MEDS: Docusate 100mg cap ORAL SCH ×3 (08:40→18:25)
[2018-06-27] MEDS: Sennosides 8.6mg ORAL SCH ×2 (08:41→18:24)
--- NOTE | 2018-06-27 10:20 | General Progress Note ---
Assessment/Plan Assessment/Plan MDD\ encephalopathy due to [facility] [place] risperdal .5mg qhs prn cont cymbalta provided ro/st Subjective Date patient seen: Jun 27, 2018 Neurologic/Psychiatric: Reports: anxiety, depressed Allergies: Coded Allergies: No Known Allergies (Unverified , 06/25/18) Subjective the pt asleep arousable and waxing and waning of consciousness Objective Last 24 Hour Vital Signs Date Time Temp Pulse Resp B/P (MAP) Pulse Ox O2 Delivery O2 Flow Rate FiO2 06/27/18 09:51 Nasal Cannula 2.0 28 06/27/18 09:51 89 20 Nasal Cannula 2.0 28 06/27/18 09:51 94 Nasal Cannula 2.0 28 06/27/18 08:00 97.7 77 20 105/64 (78) 98 97.7 06/27/18 08:00 73 06/27/18 04:00 97.4 76 19 122/68 (86) 96 97.4 06/27/18 04:00 76 06/27/18 00:00 97.0 84 20 118/71 (87) 97 97.0 06/27/18 00:00 76 06/26/18 21:00 Nasal Cannula 2.0 06/26/18 20:00 97.9 92 20 111/65 (80) 98 97.9 06/26/18 20:00 Nasal Cannula 2.0 28 06/26/18 20:00 92 Nasal Cannula 2.0 28 06/26/18 20:00 92 06/26/18 16:00 79 06/26/18 16:00 97.4 82 18 105/51 (69) 97 97.4 06/26/18 12:00 77 06/26/18 12:00 97.2 71 18 96/47 (63) 97 97.2 Intake and Output 06/26/18 06/27/18 19:00 07:00 Intake Total 820 ml Output Total 1000 ml 1200 ml Balance -180 ml -1200 ml Intake Oral 820 ml Output Urine Total 1000 ml 1200 ml Laboratory Tests 06/27/18 05:42: White Blood Count 17.4H, Red Blood Count 3.54L, Hemoglobin 11.0L, Hematocrit 32.8L, Mean Corpuscular Volume 93, Mean Corpuscular Hemoglobin 31.1H, Mean Corpuscular Hemoglobin Concent 33.6, Red Cell Distribution Width 12.2, Platelet Count 136L, Mean Platelet Volume 6.2L, Neutrophils (%) (Auto) 40.4L, Lymphocytes (%) (Auto) 52.1H, Monocytes (%) (Auto) 4.7, Eosinophils (%) (Auto) 1.9, Basophils (%) (Auto) 1.0, Sodium Level 143, Potassium Level 3.4L, Chloride Level 108H, Carbon Dioxide Level 29, Anion Gap 6, Blood Urea Nitrogen 13, Creatinine 0.6#, Estimat Glomerular Filtration Rate , Glucose Level 110H, Uric Acid 7.6H, Calcium Level 9.0, Phosphorus Level 1.6L, Magnesium Level 1.3L, Total Bilirubin 0.3, Aspartate Amino Transf (AST/SGOT) 6L, Alanine Aminotransferase (ALT/SGPT) 9L, Alkaline Phosphatase 59, C-Reactive Protein, Quantitative 7.6H, Pro-B-Type Natriuretic Peptide 991H, Total Protein 5.0L, Albumin 2.2L, Globulin 2.8, Albumin/Globulin Ratio 0.8L Height (Feet): 6 Height (Inches): 10.00 Weight (Pounds): 195 General Appearance: no apparent distress, alert - waxing and waning Mary Butler MD Jun 27, 2018 10:20
--- NOTE | 2018-06-27 10:29 | Nephrology Progress Note ---
Assessment/Plan Problem List: (1) Bladder outlet obstruction (2) Acute renal failure (ARF) Assessment: Cr lower after preston (3) Hydronephrosis (4) Leukocytosis Assessment: declining Assessment 1. Urinary retention. 2. Benign prostatic hypertrophy. 3. Possible neurogenic bladder. 4. Renal insufficiency, which appears to be acute on chronic. 5. Hematuria. 6. Mild pyuria. 7. Hydronephrosis. 8. Paraphimosis. Plan on Rocehin- One dose Genta Mag and K and phos supplement as needed bolus IV as needed adjust BP meds- monitor renal parameters monitor WBCs urine culture med-surg Subjective ROS Limited/Unobtainable: No Constitutional: Reports: malaise, weakness Objective Objective Last 24 Hour Vital Signs Date Time Temp Pulse Resp B/P (MAP) Pulse Ox O2 Delivery O2 Flow Rate FiO2 06/27/18 09:51 Nasal Cannula 2.0 28 06/27/18 09:51 89 20 Nasal Cannula 2.0 28 06/27/18 09:51 94 Nasal Cannula 2.0 28 06/27/18 08:00 97.7 77 20 105/64 (78) 98 97.7 06/27/18 08:00 73 06/27/18 04:00 97.4 76 19 122/68 (86) 96 97.4 06/27/18 04:00 76 06/27/18 00:00 97.0 84 20 118/71 (87) 97 97.0 06/27/18 00:00 76 06/26/18 21:00 Nasal Cannula 2.0 06/26/18 20:00 97.9 92 20 111/65 (80) 98 97.9 06/26/18 20:00 Nasal Cannula 2.0 28 06/26/18 20:00 92 Nasal Cannula 2.0 28 06/26/18 20:00 92 06/26/18 16:00 79 06/26/18 16:00 97.4 82 18 105/51 (69) 97 97.4 06/26/18 12:00 77 06/26/18 12:00 97.2 71 18 96/47 (63) 97 97.2 Intake and Output 06/26/18 06/27/18 19:00 07:00 Intake Total 820 ml Output Total 1000 ml 1200 ml Balance -180 ml -1200 ml Intake Oral 820 ml Output Urine Total 1000 ml 1200 ml Laboratory Tests 06/27/18 05:42: White Blood Count 17.4H, Red Blood Count 3.54L, Hemoglobin 11.0L, Hematocrit 32.8L, Mean Corpuscular Volume 93, Mean Corpuscular Hemoglobin 31.1H, Mean Corpuscular Hemoglobin Concent 33.6, Red Cell Distribution Width 12.2, Platelet Count 136L, Mean Platelet Volume 6.2L, Neutrophils (%) (Auto) 40.4L, Lymphocytes (%) (Auto) 52.1H, Monocytes (%) (Auto) 4.7, Eosinophils (%) (Auto) 1.9, Basophils (%) (Auto) 1.0, Sodium Level 143, Potassium Level 3.4L, Chloride Level 108H, Carbon Dioxide Level 29, Anion Gap 6, Blood Urea Nitrogen 13, Creatinine 0.6#, Estimat Glomerular Filtration Rate , Glucose Level 110H, Uric Acid 7.6H, Calcium Level 9.0, Phosphorus Level 1.6L, Magnesium Level 1.3L, Total Bilirubin 0.3, Aspartate Amino Transf (AST/SGOT) 6L, Alanine Aminotransferase (ALT/SGPT) 9L, Alkaline Phosphatase 59, C-Reactive Protein, Quantitative 7.6H, Pro-B-Type Natriuretic Peptide 991H, Total Protein 5.0L, Albumin 2.2L, Globulin 2.8, Albumin/Globulin Ratio 0.8L Height (Feet): 6 Height (Inches): 10.00 Weight (Pounds): 195 General Appearance: no apparent distress Cardiovascular: normal rate Respiratory/Chest: decreased breath sounds Abdomen: soft Shaun Khan MD Jun 27, 2018 10:29
[2018-06-27] MEDS ORDERED: Potassium Phosphate 30 MM in NS 275 ML IV ONE (10:30)
--- NOTE | 2018-06-27 10:48 | Urology Progress Note ---
Assessment/Plan Assessment/Plan 1. Urinary retention. 2. Benign prostatic hypertrophy. 3. Possible neurogenic bladder. 4. Renal insufficiency, which appears to be acute on chronic, improved. 5. Hematuria. 6. Mild pyuria. 7. Hydronephrosis. 8. Paraphimosis. keep preston hand irrigated and do PRN monitor renal fxn cont with flomax and proscar cysto later f/u on urine cx Subjective Allergies: Coded Allergies: No Known Allergies (Unverified , 06/25/18) Subjective all noted, confused Objective Last 24 Hour Vital Signs Date Time Temp Pulse Resp B/P (MAP) Pulse Ox O2 Delivery O2 Flow Rate FiO2 06/27/18 09:51 Nasal Cannula 2.0 28 06/27/18 09:51 89 20 Nasal Cannula 2.0 28 06/27/18 09:51 94 Nasal Cannula 2.0 28 06/27/18 08:00 97.7 77 20 105/64 (78) 98 97.7 06/27/18 08:00 73 06/27/18 04:00 97.4 76 19 122/68 (86) 96 97.4 06/27/18 04:00 76 06/27/18 00:00 97.0 84 20 118/71 (87) 97 97.0 06/27/18 00:00 76 06/26/18 21:00 Nasal Cannula 2.0 06/26/18 20:00 97.9 92 20 111/65 (80) 98 97.9 06/26/18 20:00 Nasal Cannula 2.0 28 06/26/18 20:00 92 Nasal Cannula 2.0 28 06/26/18 20:00 92 06/26/18 16:00 79 06/26/18 16:00 97.4 82 18 105/51 (69) 97 97.4 06/26/18 12:00 77 06/26/18 12:00 97.2 71 18 96/47 (63) 97 97.2 Intake and Output 06/26/18 06/27/18 19:00 07:00 Intake Total 820 ml Output Total 1000 ml 1200 ml Balance -180 ml -1200 ml Intake Oral 820 ml Output Urine Total 1000 ml 1200 ml Microbiology Date/Time Source Procedure Growth Status 06/25/18 14:46 Blood Blood Culture - Preliminary NO GROWTH AFTER 24 HOURS Resulted 06/26/18 15:10 Indwelling Cath Urine Culture - Preliminary NO GROWTH Resulted Current Medications Medications (Trade) Dose Ordered Sig/Pérez Route PRN Reason Start Time Stop Time Status Last Admin Dose Admin Acetaminophen (Tylenol) 650 mg Q4H PRN ORAL Mild Pain/Temp > 100.5 06/27/18 10:30 07/27/18 10:29 Albuterol/ Ipratropium (Albuterol/ Ipratropium) 3 ml Q6H PRN HHN Shortness of Breath 06/25/18 21:00 06/30/18 20:59 Aspirin (ASA) 81 mg DAILY ORAL 06/26/18 09:00 07/26/18 08:59 06/27/18 08:38 Ceftriaxone Sodium 1 gm/ Dextrose 55 ml @ 110 mls/hr Q24H IVPB 06/26/18 10:30 07/03/18 10:29 06/26/18 11:47 Clonidine HCl (Catapres Tab) 0.1 mg Q8H PRN ORAL SBP>170 or DBP>100 06/25/18 21:00 07/25/18 20:59 Divalproex Sodium (Depakote) 500 mg BID ORAL 06/25/18 21:11 07/25/18 21:10 06/27/18 08:39 Docusate Sodium (Colace) 100 mg TID ORAL 06/26/18 13:00 07/26/18 08:59 06/26/18 18:10 Duloxetine HCl (Cymbalta) 30 mg DAILY ORAL 06/26/18 09:00 07/26/18 08:59 06/27/18 08:38 Ergocalciferol (Drisdol) 50,000 intlu ONCE A WEEK ORAL 07/02/18 09:00 07/25/18 20:59 Finasteride (Proscar) 5 mg DAILY ORAL 06/26/18 09:00 07/26/18 08:59 06/27/18 08:39 Gentamicin Sulfate/Sodium Chloride 50 ml @ 100 mls/hr ONCE ONCE IVPB 06/27/18 11:30 06/27/18 11:59 Iopamidol (Isovue-300 100ml) 100 ml NOW PRN INJ Radiology Procedure 06/25/18 13:30 Magnesium Sulfate 100 ml @ 100 mls/hr Q1H IVPB 06/27/18 10:00 06/27/18 13:59 06/27/18 10:40 Mineral Oil (Fleet's Mineral Oil Enema) 133 ml DAILYPRN PRN RECTAL Constipation 06/25/18 21:00 07/25/18 20:59 Multivitamins Therapeutic (Therapeutic Multivitamin) 1 ea DAILY ORAL 06/26/18 09:00 07/26/18 08:59 06/27/18 08:38 Pantoprazole (Protonix) 40 mg DAILY ORAL 06/26/18 09:00 07/26/18 08:59 06/27/18 08:39 Potassium Phosphate 30 mm/ Sodium Chloride 285 ml @ 47.5 mls/hr ONCE ONCE IV 06/27/18 10:30 06/27/18 16:29 Risperidone (RisperDAL) 0.5 mg Q24H ORAL 06/26/18 09:00 07/26/18 08:59 06/27/18 08:38 Sennosides (Senokot) 1 tab BID ORAL 06/26/18 09:00 07/26/18 08:59 06/26/18 18:10 Tamsulosin HCl (Flomax) 0.4 mg BID ORAL 06/26/18 09:00 07/25/18 20:59 06/27/18 08:38 Thiamine HCl (Vitamin B1) 100 mg DAILY ORAL 06/26/18 09:00 07/26/18 08:59 06/27/18 08:39 Laboratory Tests 06/27/18 05:42: White Blood Count 17.4H, Red Blood Count 3.54L, Hemoglobin 11.0L, Hematocrit 32.8L, Mean Corpuscular Volume 93, Mean Corpuscular Hemoglobin 31.1H, Mean Corpuscular Hemoglobin Concent 33.6, Red Cell Distribution Width 12.2, Platelet Count 136L, Mean Platelet Volume 6.2L, Neutrophils (%) (Auto) 40.4L, Lymphocytes (%) (Auto) 52.1H, Monocytes (%) (Auto) 4.7, Eosinophils (%) (Auto) 1.9, Basophils (%) (Auto) 1.0, Sodium Level 143, Potassium Level 3.4L, Chloride Level 108H, Carbon Dioxide Level 29, Anion Gap 6, Blood Urea Nitrogen 13, Creatinine 0.6#, Estimat Glomerular Filtration Rate , Glucose Level 110H, Uric Acid 7.6H, Calcium Level 9.0, Phosphorus Level 1.6L, Magnesium Level 1.3L, Total Bilirubin 0.3, Aspartate Amino Transf (AST/SGOT) 6L, Alanine Aminotransferase (ALT/SGPT) 9L, Alkaline Phosphatase 59, C-Reactive Protein, Quantitative [Pending], Pro-B-Type Natriuretic Peptide 991H, Total Protein 5.0L , Albumin 2.2L, Globulin 2.8, Albumin/Globulin Ratio 0.8L Height (Feet): 6 Height (Inches): 10.00 Weight (Pounds): 195 Objective exam stable, urine tyrese RICHIE PERRIN Jun 27, 2018 10:48
[2018-06-27] MEDS: cefTRIAXone 1 GM in D5W 55 ML IVPB SCH (11:18)
[2018-06-27] MEDS ORDERED: Gentamicin 100mg/50ml Premix 50 ML IVPB ONE (11:30)
[2018-06-27 12:00] VITALS: BP 98/57
[2018-06-27 16:00] VITALS: BP 107/54
[2018-06-27] MEDS ORDERED: Fleet's Mineral Oil Enema RECTAL PRN (18:00)
[2018-06-27] MEDS ORDERED: Albuterol/Ipratropium 3ml neb HHN PRN (18:00)
[2018-06-27 19:17] VITALS: BP 98/50
--- NOTE | 2018-06-27 22:50 | General Progress Note ---
Assessment/Plan Status: stable, progressing Assessment/Plan 1) MOISES on CKD -Nephrology input appreciated follow electrolytes and creatinine after catheterization- improving Urology assistance appreciated replete as needed avoid nephrotoxins/renally dose meds 2) UTI/leukocytosis/rule out sepsis -pyuria and leukocytosis noted- ceftriaxone started; gent added -lactic acid normalized -wbc improving -afebrile -f/u urine culutre 2) HTN -continue meds -Nephrology assistance appreciated 3): Seizure disorder -continue meds 4)Depression/cognitive impairment -Psych consult/recs appreciated DVT Prophylaxis: scd Code status: full Hospital Classification declaration: Based on this initial evaluation, and depending on the patient's clinical course, I anticipate that this patient will require hospitalization for 2-3 days. Disposition: Once the patient is stable to leave the hospital, I anticipate the patient will likely be discharged to the following environment:SNF I spent 45 minutes on this patient's case, and 23 minutes was dedicated to counseling and/or care coordination. Time of note may not reflect time of encounter. Subjective Date patient seen: Jun 27, 2018 Time patient seen: 12:55 ROS Limited/Unobtainable: Yes Constitutional: Reports: no symptoms HEENT: Reports: no symptoms Cardiovascular: Reports: no symptoms Respiratory: Reports: no symptoms Gastrointestinal/Abdominal: Reports: abdominal pain Genitourinary: Reports: pain Neurologic/Psychiatric: Reports: no symptoms, pre-existing deficit Endocrine: Reports: no symptoms Hematologic/Lymphatic: Reports: no symptoms Allergies: Coded Allergies: No Known Allergies (Unverified , 06/25/18) All Systems: reviewed and negative except above Subjective Events of overnight noted Chart reviewed Catheter with good urine output Symptoms improving Patient resting comfortably in room Objective Last 24 Hour Vital Signs Date Time Temp Pulse Resp B/P (MAP) Pulse Ox O2 Delivery O2 Flow Rate FiO2 06/27/18 21:52 Nasal Cannula 2.0 06/27/18 21:24 97.9 06/27/18 20:01 Nasal Cannula 2.0 28 06/27/18 20:00 75 18 Nasal Cannula 2.0 28 06/27/18 20:00 96 Nasal Cannula 2.0 28 06/27/18 19:17 97.9 74 16 98/50 (66) 96 97.9 06/27/18 16:00 75 06/27/18 16:00 97.7 72 20 107/54 (71) 98 97.7 06/27/18 12:00 63 06/27/18 12:00 96.3 67 18 98/57 (71) 98 96.3 06/27/18 09:51 Nasal Cannula 2.0 28 06/27/18 09:51 89 20 Nasal Cannula 2.0 28 06/27/18 09:51 94 Nasal Cannula 2.0 28 06/27/18 09:00 Nasal Cannula 2.0 06/27/18 08:00 97.7 77 20 105/64 (78) 98 97.7 06/27/18 08:00 73 06/27/18 04:00 97.4 76 19 122/68 (86) 96 97.4 06/27/18 04:00 76 06/27/18 00:00 97.0 84 20 118/71 (87) 97 97.0 06/27/18 00:00 76 Intake and Output 06/26/18 06/27/18 19:00 07:00 Intake Total 820 ml Output Total 1000 ml 1200 ml Balance -180 ml -1200 ml Intake Oral 820 ml Output Urine Total 1000 ml 1200 ml Laboratory Tests 06/27/18 05:42: White Blood Count 17.4H, Red Blood Count 3.54L, Hemoglobin 11.0L, Hematocrit 32.8L, Mean Corpuscular Volume 93, Mean Corpuscular Hemoglobin 31.1H, Mean Corpuscular Hemoglobin Concent 33.6, Red Cell Distribution Width 12.2, Platelet Count 136L, Mean Platelet Volume 6.2L, Neutrophils (%) (Auto) 40.4L, Lymphocytes (%) (Auto) 52.1H, Monocytes (%) (Auto) 4.7, Eosinophils (%) (Auto) 1.9, Basophils (%) (Auto) 1.0, Sodium Level 143, Potassium Level 3.4L, Chloride Level 108H, Carbon Dioxide Level 29, Anion Gap 6, Blood Urea Nitrogen 13, Creatinine 0.6#, Estimat Glomerular Filtration Rate , Glucose Level 110H, Uric Acid 7.6H, Calcium Level 9.0, Phosphorus Level 1.6L, Magnesium Level 1.3L, Total Bilirubin 0.3, Aspartate Amino Transf (AST/SGOT) 6L, Alanine Aminotransferase (ALT/SGPT) 9L, Alkaline Phosphatase 59, C-Reactive Protein, Quantitative 7.4H, Pro-B-Type Natriuretic Peptide 991H, Total Protein 5.0L, Albumin 2.2L, Globulin 2.8, Albumin/Globulin Ratio 0.8L Height (Feet): 6 Height (Inches): 10.00 Weight (Pounds): 195 General Appearance: no apparent distress, lethargic, confused EENT: PERRL/EOMI, TMs normal Neck: non-tender Cardiovascular: normal peripheral pulses, normal rate, regular rhythm Respiratory/Chest: chest wall non-tender, normal breath sounds Abdomen: normal bowel sounds, non tender, soft Pelvis: normal external exam Genitourinary/Rectal: other - + Hernandez catheter Edema: no edema noted Arm (L), no edema noted Arm (R) Edema: trace edema Neurologic: disoriented Skin: normal pigmentation Lymphatic: normal anterior cervical (L), normal anterior cervical (R) Blaine Villa M.D. Jun 27, 2018 22:50
[2018-06-28 00:36] VITALS: BP 116/61
[2018-06-28 04:14] VITALS: BP 105/59
[2018-06-28 05:48] LABS: HEMATOCRIT 36.5 % (42.0-52.0); HEMOGLOBIN 12.2 G/DL (14.2-18.0); MEAN CORPUSCULAR VOLUME 93 FL (80-99); PLATELET COUNT 137 K/UL (150-450); RED BLOOD COUNT 3.92 M/UL (4.70-6.10); RED CELL DISTRIBUTION WIDTH 12.1 % (11.6-14.8); WHITE BLOOD COUNT 15.4 K/UL (4.8-10.8)
[2018-06-28 06:27] LABS: ALANINE AMINOTRANSFERASE 7 U/L (12-78); ALBUMIN 2.2 G/DL (3.4-5.0); ALBUMIN/GLOBULIN RATIO 0.8 (1.0-2.7); ALKALINE PHOSPHATASE 64 U/L (46-116); ANION GAP 4 mmol/L (5-15); ASPARTATE AMINO TRANSFERASE 9 U/L (15-37); BILIRUBIN,TOTAL 0.3 MG/DL (0.2-1.0); BLOOD UREA NITROGEN 8 mg/dL (7-18); CALCIUM 8.8 MG/DL (8.5-10.1); CARBON DIOXIDE 31 MMOL/L (21-32); CHLORIDE 108 MMOL/L (98-107); CREATININE 0.6 MG/DL (0.55-1.30); PHOSPHORUS 2.1 MG/DL (2.5-4.9); POTASSIUM 3.8 MMOL/L (3.5-5.1); SODIUM 143 MMOL/L (136-145)
[2018-06-28 07:26] VITALS: BP 108/55
[2018-06-28] MEDS: Aspirin Baby 81mg ORAL SCH (08:31)
[2018-06-28] MEDS: Depakote 500mg tab ORAL SCH ×2 (08:31→17:51)
[2018-06-28] MEDS: Multivitamin w/Minerals tab ORAL SCH (08:31)
[2018-06-28] MEDS: DULoxetine 30mg cap ORAL SCH (08:31)
[2018-06-28] MEDS: Tamsulosin 0.4mg cap ORAL SCH ×2 (08:31→21:01)
[2018-06-28] MEDS: Thiamine 100mg tab ORAL SCH (08:31)
[2018-06-28] MEDS: Sennosides 8.6mg ORAL SCH ×2 (08:40→17:51)
[2018-06-28] MEDS: Docusate 100mg cap ORAL SCH ×3 (08:40→17:51)
--- NOTE | 2018-06-28 09:24 | Urology Progress Note ---
Assessment/Plan Assessment/Plan 1. Urinary retention. 2. Benign prostatic hypertrophy. 3. Possible neurogenic bladder. 4. Renal insufficiency, which appears to be acute on chronic, improved. 5. Hematuria. 6. Mild pyuria. 7. Hydronephrosis. 8. Paraphimosis. keep preston hand irrigated and do PRN monitor renal fxn cont with flomax and proscar cysto later f/u on urine cx restraints PRN, hopefully pt won't pull on preston d/w nursing staff Subjective Allergies: Coded Allergies: No Known Allergies (Unverified , 06/25/18) Subjective all noted, confused Objective Last 24 Hour Vital Signs Date Time Temp Pulse Resp B/P (MAP) Pulse Ox O2 Delivery O2 Flow Rate FiO2 06/28/18 09:00 Nasal Cannula 2.0 06/28/18 07:26 97.5 78 18 108/55 (72) 100 97.5 06/28/18 07:15 99 Nasal Cannula 2.0 28 06/28/18 07:15 76 18 Nasal Cannula 2.0 28 06/28/18 07:15 Nasal Cannula 2.0 28 06/28/18 04:14 96.5 68 19 105/59 (74) 98 96.5 06/28/18 00:36 97.0 69 18 116/61 (79) 96 97.0 06/27/18 21:52 Nasal Cannula 2.0 06/27/18 21:24 97.9 06/27/18 20:01 Nasal Cannula 2.0 28 06/27/18 20:00 75 18 Nasal Cannula 2.0 28 06/27/18 20:00 96 Nasal Cannula 2.0 28 06/27/18 19:17 97.9 74 16 98/50 (66) 96 97.9 06/27/18 16:00 75 06/27/18 16:00 97.7 72 20 107/54 (71) 98 97.7 06/27/18 12:00 63 06/27/18 12:00 96.3 67 18 98/57 (71) 98 96.3 06/27/18 09:51 Nasal Cannula 2.0 28 06/27/18 09:51 89 20 Nasal Cannula 2.0 28 06/27/18 09:51 94 Nasal Cannula 2.0 28 Intake and Output 06/27/18 06/28/18 19:00 07:00 Intake Total 560 ml 240 ml Output Total 1300 ml 1350 ml Balance -740 ml -1110 ml Intake Oral 360 ml 240 ml IV Total 200 ml Output Urine Total 1300 ml 1350 ml # Bowel Movements 1 1 Microbiology Date/Time Source Procedure Growth Status 06/25/18 14:46 Blood Blood Culture - Preliminary NO GROWTH AFTER 48 HOURS Resulted 06/26/18 15:10 Indwelling Cath Urine Culture - Preliminary NO GROWTH AFTER 24 HOURS Resulted 06/26/18 18:45 Rectum VRE Culture - Final Enterococcus Faecalis - Vre Complete Current Medications Medications (Trade) Dose Ordered Sig/Pérez Route PRN Reason Start Time Stop Time Status Last Admin Dose Admin Acetaminophen (Tylenol) 650 mg Q4H PRN ORAL Mild Pain/Temp > 100.5 06/27/18 18:30 07/27/18 10:29 06/27/18 21:24 Albuterol/ Ipratropium (Albuterol/ Ipratropium) 3 ml Q6H PRN HHN Shortness of Breath 06/27/18 18:00 06/30/18 17:59 Aspirin (ASA) 81 mg DAILY ORAL 06/28/18 09:00 07/26/18 08:59 06/28/18 08:31 Ceftriaxone Sodium 1 gm/ Dextrose 55 ml @ 110 mls/hr Q24H IVPB 06/28/18 10:30 07/03/18 10:29 Clonidine HCl (Catapres Tab) 0.1 mg Q8H PRN ORAL SBP>170 or DBP>100 06/27/18 18:00 07/25/18 17:59 Divalproex Sodium (Depakote) 500 mg BID ORAL 06/27/18 18:00 07/25/18 21:10 06/28/18 08:31 Docusate Sodium (Colace) 100 mg TID ORAL 06/27/18 18:00 07/26/18 08:59 06/27/18 18:25 Duloxetine HCl (Cymbalta) 30 mg DAILY ORAL 06/28/18 09:00 07/26/18 08:59 06/28/18 08:31 Ergocalciferol (Drisdol) 50,000 intlu ONCE A WEEK ORAL 07/02/18 09:00 07/25/18 20:59 Finasteride (Proscar) 5 mg DAILY ORAL 06/28/18 09:00 07/26/18 08:59 06/28/18 08:30 Iopamidol (Isovue-300 100ml) 100 ml NOW PRN INJ Radiology Procedure 06/28/18 13:30 06/28/18 13:31 Magnesium Sulfate 100 ml @ 100 mls/hr Q1H IVPB 06/28/18 09:30 06/28/18 13:29 UNV Mineral Oil (Fleet's Mineral Oil Enema) 133 ml DAILYPRN PRN RECTAL Constipation 06/27/18 18:00 07/25/18 17:59 Multivitamins Therapeutic (Therapeutic Multivitamin) 1 ea DAILY ORAL 06/28/18 09:00 07/26/18 08:59 06/28/18 08:31 Pantoprazole (Protonix) 40 mg DAILY ORAL 06/28/18 09:00 07/26/18 08:59 06/28/18 08:31 Potassium Phosphate 30 mm/ Sodium Chloride 285 ml @ 47.5 mls/hr ONCE ONCE IVPB 06/28/18 09:30 06/28/18 15:29 UNV Risperidone (RisperDAL) 0.5 mg Q24H ORAL 06/28/18 09:00 07/26/18 08:59 06/28/18 08:31 Sennosides (Senokot) 1 tab BID ORAL 06/27/18 18:00 07/26/18 08:59 06/27/18 18:24 Tamsulosin HCl (Flomax) 0.4 mg Q12HR ORAL 06/27/18 21:00 07/27/18 20:59 06/28/18 08:31 Thiamine HCl (Vitamin B1) 100 mg DAILY ORAL 06/28/18 09:00 07/26/18 08:59 06/28/18 08:31 Laboratory Tests 06/28/18 05:00: White Blood Count 15.4H, Red Blood Count 3.92L, Hemoglobin 12.2L, Hematocrit 36.5L, Mean Corpuscular Volume 93, Mean Corpuscular Hemoglobin 31.2H, Mean Corpuscular Hemoglobin Concent 33.5, Red Cell Distribution Width 12.1, Platelet Count 137L, Mean Platelet Volume 6.0L, Neutrophils (%) (Auto) , Lymphocytes (%) (Auto) , Monocytes (%) (Auto) , Eosinophils (%) (Auto) , Basophils (%) (Auto) , Differential Total Cells Counted 100, Neutrophils % (Manual) 52, Lymphocytes % ( Manual) 40, Monocytes % (Manual) 5, Eosinophils % (Manual) 2, Basophils % ( Manual) 0, Myelocytes % 1H, Band Neutrophils 0, Platelet Estimate DecreasedL, Platelet Morphology Normal, Red Blood Cell Morphology Normal, Sodium Level 143, Potassium Level 3.8, Chloride Level 108H, Carbon Dioxide Level 31, Anion Gap 4L , Blood Urea Nitrogen 8, Creatinine 0.6, Estimat Glomerular Filtration Rate , Glucose Level 127H, Uric Acid 6.0, Calcium Level 8.8, Phosphorus Level 2.1L, Magnesium Level 1.7L, Total Bilirubin 0.3, Aspartate Amino Transf (AST/SGOT) 9L , Alanine Aminotransferase (ALT/SGPT) 7L, Alkaline Phosphatase 64, Pro-B-Type Natriuretic Peptide 1337H, Total Protein 5.1L, Albumin 2.2L, Globulin 2.9, Albumin/Globulin Ratio 0.8L Height (Feet): 6 Height (Inches): 10.00 Weight (Pounds): 195 Objective exam stable, urine tyrese RICHIE PERRIN Jun 28, 2018 09:24
[2018-06-28] MEDS: cefTRIAXone 1 GM in D5W 55 ML IVPB SCH (09:33)
[2018-06-28] MEDS ORDERED: Potassium Phosphate 30 MM in NS 275 ML IV ONE (11:00)
--- NOTE | 2018-06-28 11:05 | Nephrology Progress Note ---
Assessment/Plan Problem List: (1) Bladder outlet obstruction (2) Acute renal failure (ARF) Assessment: Cr lower after preston (3) Hydronephrosis (4) Leukocytosis Assessment: declining Assessment WBCs lowering- 1. Urinary retention. 2. Benign prostatic hypertrophy. 3. Possible neurogenic bladder. 4. Renal insufficiency, which appears to be acute on chronic. 5. Hematuria. 6. Mild pyuria. 7. Hydronephrosis. 8. Paraphimosis. Plan on Rocehin- One dose Genta 06/27 Mag and K and phos supplement as needed bolus IV as needed adjust BP meds- monitor renal parameters monitor WBCs urine culture med-surg Subjective ROS Limited/Unobtainable: No Objective Objective Last 24 Hour Vital Signs Date Time Temp Pulse Resp B/P (MAP) Pulse Ox O2 Delivery O2 Flow Rate FiO2 06/28/18 09:00 Nasal Cannula 2.0 06/28/18 07:26 97.5 78 18 108/55 (72) 100 97.5 06/28/18 07:15 99 Nasal Cannula 2.0 28 06/28/18 07:15 76 18 Nasal Cannula 2.0 28 06/28/18 07:15 Nasal Cannula 2.0 28 06/28/18 04:14 96.5 68 19 105/59 (74) 98 96.5 06/28/18 00:36 97.0 69 18 116/61 (79) 96 97.0 06/27/18 21:52 Nasal Cannula 2.0 06/27/18 21:24 97.9 06/27/18 20:01 Nasal Cannula 2.0 28 06/27/18 20:00 75 18 Nasal Cannula 2.0 28 06/27/18 20:00 96 Nasal Cannula 2.0 28 06/27/18 19:17 97.9 74 16 98/50 (66) 96 97.9 06/27/18 16:00 75 06/27/18 16:00 97.7 72 20 107/54 (71) 98 97.7 06/27/18 12:00 63 06/27/18 12:00 96.3 67 18 98/57 (71) 98 96.3 Intake and Output 06/27/18 06/28/18 19:00 07:00 Intake Total 560 ml 240 ml Output Total 1300 ml 1350 ml Balance -740 ml -1110 ml Intake Oral 360 ml 240 ml IV Total 200 ml Output Urine Total 1300 ml 1350 ml # Bowel Movements 1 1 Laboratory Tests 06/28/18 05:00: White Blood Count 15.4H, Red Blood Count 3.92L, Hemoglobin 12.2L, Hematocrit 36.5L, Mean Corpuscular Volume 93, Mean Corpuscular Hemoglobin 31.2H, Mean Corpuscular Hemoglobin Concent 33.5, Red Cell Distribution Width 12.1, Platelet Count 137L, Mean Platelet Volume 6.0L, Neutrophils (%) (Auto) , Lymphocytes (%) (Auto) , Monocytes (%) (Auto) , Eosinophils (%) (Auto) , Basophils (%) (Auto) , Differential Total Cells Counted 100, Neutrophils % (Manual) 52, Lymphocytes % ( Manual) 40, Monocytes % (Manual) 5, Eosinophils % (Manual) 2, Basophils % ( Manual) 0, Myelocytes % 1H, Band Neutrophils 0, Platelet Estimate DecreasedL, Platelet Morphology Normal, Red Blood Cell Morphology Normal, Sodium Level 143, Potassium Level 3.8, Chloride Level 108H, Carbon Dioxide Level 31, Anion Gap 4L , Blood Urea Nitrogen 8, Creatinine 0.6, Estimat Glomerular Filtration Rate , Glucose Level 127H, Uric Acid 6.0, Calcium Level 8.8, Phosphorus Level 2.1L, Magnesium Level 1.7L, Total Bilirubin 0.3, Aspartate Amino Transf (AST/SGOT) 9L , Alanine Aminotransferase (ALT/SGPT) 7L, Alkaline Phosphatase 64, Pro-B-Type Natriuretic Peptide 1337H, Total Protein 5.1L, Albumin 2.2L, Globulin 2.9, Albumin/Globulin Ratio 0.8L Height (Feet): 6 Height (Inches): 10.00 Weight (Pounds): 195 General Appearance: no apparent distress Cardiovascular: normal rate Respiratory/Chest: decreased breath sounds Abdomen: soft Objective no change in physical exam Shaun Khan MD Jun 28, 2018 11:05
--- NOTE | 2018-06-28 11:34 | General Progress Note ---
Assessment/Plan Status: progressing Assessment/Plan 1) MOISES on CKD -Nephrology input appreciated follow electrolytes and creatinine after catheterization- improving Urology assistance appreciated replete as needed avoid nephrotoxins/renally dose meds 2) UTI/leukocytosis/rule out sepsis -pyuria and leukocytosis noted- ceftriaxone started; gent added -lactic acid normalized -wbc improving -afebrile -f/u urine culture 2) HTN -continue meds -Nephrology assistance appreciated 3): Seizure disorder -continue meds 4)Depression/cognitive impairment -Psych consult/recs appreciated DVT Prophylaxis: scd's Code status: full Hospital Classification declaration: Based on this initial evaluation, and depending on the patient's clinical course, I anticipate that this patient will require hospitalization for 2-3 days. Disposition: Once the patient is stable to leave the hospital, I anticipate the patient will likely be discharged to the following environment:SNF I spent 45 minutes on this patient's case, and 23 minutes was dedicated to counseling and/or care coordination. Time of note may not reflect time of encounter. Subjective Date patient seen: Jun 28, 2018 Time patient seen: 11:34 ROS Limited/Unobtainable: Yes Constitutional: Reports: no symptoms HEENT: Reports: no symptoms Cardiovascular: Reports: no symptoms Respiratory: Reports: no symptoms Gastrointestinal/Abdominal: Reports: no symptoms Genitourinary: Reports: urgency Neurologic/Psychiatric: Reports: no symptoms Endocrine: Reports: no symptoms Hematologic/Lymphatic: Reports: no symptoms Allergies: Coded Allergies: No Known Allergies (Unverified , 06/25/18) All Systems: reviewed and negative except above Subjective Events of overnight noted Chart reviewed Catheter draining urine Symptoms improving Patient resting comfortably in room Objective Last 24 Hour Vital Signs Date Time Temp Pulse Resp B/P (MAP) Pulse Ox O2 Delivery O2 Flow Rate FiO2 06/28/18 09:00 Nasal Cannula 2.0 06/28/18 07:26 97.5 78 18 108/55 (72) 100 97.5 06/28/18 07:15 99 Nasal Cannula 2.0 28 06/28/18 07:15 76 18 Nasal Cannula 2.0 28 06/28/18 07:15 Nasal Cannula 2.0 28 06/28/18 04:14 96.5 68 19 105/59 (74) 98 96.5 06/28/18 00:36 97.0 69 18 116/61 (79) 96 97.0 06/27/18 21:52 Nasal Cannula 2.0 06/27/18 21:24 97.9 06/27/18 20:01 Nasal Cannula 2.0 28 06/27/18 20:00 75 18 Nasal Cannula 2.0 28 06/27/18 20:00 96 Nasal Cannula 2.0 28 06/27/18 19:17 97.9 74 16 98/50 (66) 96 97.9 06/27/18 16:00 75 06/27/18 16:00 97.7 72 20 107/54 (71) 98 97.7 06/27/18 12:00 63 06/27/18 12:00 96.3 67 18 98/57 (71) 98 96.3 Intake and Output 06/27/18 06/28/18 19:00 07:00 Intake Total 560 ml 240 ml Output Total 1300 ml 1350 ml Balance -740 ml -1110 ml Intake Oral 360 ml 240 ml IV Total 200 ml Output Urine Total 1300 ml 1350 ml # Bowel Movements 1 1 Laboratory Tests 06/28/18 05:00: White Blood Count 15.4H, Red Blood Count 3.92L, Hemoglobin 12.2L, Hematocrit 36.5L, Mean Corpuscular Volume 93, Mean Corpuscular Hemoglobin 31.2H, Mean Corpuscular Hemoglobin Concent 33.5, Red Cell Distribution Width 12.1, Platelet Count 137L, Mean Platelet Volume 6.0L, Neutrophils (%) (Auto) , Lymphocytes (%) (Auto) , Monocytes (%) (Auto) , Eosinophils (%) (Auto) , Basophils (%) (Auto) , Differential Total Cells Counted 100, Neutrophils % (Manual) 52, Lymphocytes % ( Manual) 40, Monocytes % (Manual) 5, Eosinophils % (Manual) 2, Basophils % ( Manual) 0, Myelocytes % 1H, Band Neutrophils 0, Platelet Estimate DecreasedL, Platelet Morphology Normal, Red Blood Cell Morphology Normal, Sodium Level 143, Potassium Level 3.8, Chloride Level 108H, Carbon Dioxide Level 31, Anion Gap 4L , Blood Urea Nitrogen 8, Creatinine 0.6, Estimat Glomerular Filtration Rate , Glucose Level 127H, Uric Acid 6.0, Calcium Level 8.8, Phosphorus Level 2.1L, Magnesium Level 1.7L, Total Bilirubin 0.3, Aspartate Amino Transf (AST/SGOT) 9L , Alanine Aminotransferase (ALT/SGPT) 7L, Alkaline Phosphatase 64, Pro-B-Type Natriuretic Peptide 1337H, Total Protein 5.1L, Albumin 2.2L, Globulin 2.9, Albumin/Globulin Ratio 0.8L Height (Feet): 6 Height (Inches): 10.00 Weight (Pounds): 195 General Appearance: no apparent distress, lethargic, thin EENT: PERRL/EOMI, normal ENT inspection, TMs normal Neck: non-tender, supple Cardiovascular: normal peripheral pulses, normal rate, regular rhythm Respiratory/Chest: chest wall non-tender, lungs clear Abdomen: normal bowel sounds, non tender, soft Pelvis: normal external exam Genitourinary/Rectal: blood at urethral meatus Extremities: normal range of motion Edema: no edema noted Arm (L), no edema noted Arm (R) Neurologic: alert Skin: normal pigmentation, warm/dry Lymphatic: normal anterior cervical (L), normal anterior cervical (R) Blaine Villa M.D. Jun 28, 2018 11:34
[2018-06-28 11:47] VITALS: BP 106/58
[2018-06-28] MEDS ORDERED: Isovue-300 100ml vial INJ PRN (13:30)
[2018-06-28 15:50] VITALS: BP 109/56
[2018-06-28 20:00] VITALS: BP 101/50
[2018-06-29] VITALS: BP 115/61
[2018-06-29 04:00] VITALS: BP 132/62
[2018-06-29 08:40] VITALS: BP 113/74
[2018-06-29] MEDS: Docusate 100mg cap ORAL SCH ×3 (08:59→17:07)
[2018-06-29] MEDS: DULoxetine 30mg cap ORAL SCH (08:59)
[2018-06-29] MEDS: Multivitamin w/Minerals tab ORAL SCH (08:59)
[2018-06-29] MEDS: Aspirin Baby 81mg ORAL SCH (08:59)
[2018-06-29] MEDS: Sennosides 8.6mg ORAL SCH ×2 (08:59→17:07)
[2018-06-29] MEDS: Tamsulosin 0.4mg cap ORAL SCH ×2 (09:00→20:59)
[2018-06-29] MEDS: Thiamine 100mg tab ORAL SCH (09:00)
[2018-06-29] MEDS: Depakote 500mg tab ORAL SCH ×2 (09:00→17:07)
--- NOTE | 2018-06-29 09:36 | Nephrology Progress Note ---
Assessment/Plan Problem List: (1) Bladder outlet obstruction (2) Acute renal failure (ARF) Assessment: Cr lower after preston (3) Hydronephrosis (4) Leukocytosis Assessment: declining Assessment WBCs lowering- 1. Urinary retention. 2. Benign prostatic hypertrophy. 3. Possible neurogenic bladder. 4. Renal insufficiency, which appears to be acute on chronic. 5. Hematuria. 6. Mild pyuria. 7. Hydronephrosis. 8. Paraphimosis. Plan check labs today on Rocehin- One dose Genta 06/27 Mag and K and phos supplement as needed bolus IV as needed adjust BP meds- monitor renal parameters monitor WBCs urine culture med-surg DC planning Subjective ROS Limited/Unobtainable: No Constitutional: Reports: other - stronger Objective Objective Last 24 Hour Vital Signs Date Time Temp Pulse Resp B/P (MAP) Pulse Ox O2 Delivery O2 Flow Rate FiO2 06/29/18 08:40 98.0 77 18 113/74 (87) 98 98.0 06/29/18 08:30 Nasal Cannula 2.0 28 06/29/18 08:30 98 Nasal Cannula 2.0 28 06/29/18 08:30 80 18 Nasal Cannula 2.0 28 06/29/18 07:41 Nasal Cannula 2.0 06/29/18 05:30 Nasal Cannula 2.0 06/29/18 04:00 97.3 69 19 132/62 (85) 97 97.3 06/29/18 00:00 97.7 75 20 115/61 (79) 98 97.7 06/28/18 21:00 Nasal Cannula 2.0 06/28/18 20:00 98.8 75 19 101/50 (67) 99 98.8 06/28/18 18:49 99 Nasal Cannula 2.0 28 06/28/18 18:49 Nasal Cannula 2.0 28 06/28/18 18:49 77 18 Nasal Cannula 2.0 28 06/28/18 15:50 97.5 65 18 109/56 (73) 98 97.5 06/28/18 11:47 97.9 60 18 106/58 (74) 97 97.9 Intake and Output 06/28/18 06/29/18 19:00 07:00 Intake Total 740.0 ml 400 ml Output Total 950 ml 2000 ml Balance -210.0 ml -1600 ml Intake Oral 400 ml IV Total 740.0 ml Output Urine Total 950 ml 2000 ml # Bowel Movements 2 3 Height (Feet): 6 Height (Inches): 10.00 Weight (Pounds): 195 General Appearance: no apparent distress Cardiovascular: normal rate Respiratory/Chest: lungs clear Abdomen: soft Objective no change in physical exam Shaun Khan MD Jun 29, 2018 09:36
[2018-06-29] MEDS: cefTRIAXone 1 GM in D5W 55 ML IVPB SCH (09:41)
--- NOTE | 2018-06-29 10:11 | Urology Progress Note ---
Assessment/Plan Assessment/Plan 1. Urinary retention. 2. Benign prostatic hypertrophy. 3. Possible neurogenic bladder. 4. Renal insufficiency, which appears to be acute on chronic, improved. 5. Hematuria. 6. Mild pyuria. 7. Hydronephrosis. 8. Paraphimosis. keep preston indwelling hand irrigated and do PRN monitor renal fxn cont with flomax and proscar cysto later f/u on blood cx restraints PRN, hopefully pt won't pull on preston d/w nursing staff Subjective Allergies: Coded Allergies: No Known Allergies (Unverified , 06/25/18) Subjective all noted, a bit more alert Objective Last 24 Hour Vital Signs Date Time Temp Pulse Resp B/P (MAP) Pulse Ox O2 Delivery O2 Flow Rate FiO2 06/29/18 08:40 98.0 77 18 113/74 (87) 98 98.0 06/29/18 08:30 Nasal Cannula 2.0 28 06/29/18 08:30 98 Nasal Cannula 2.0 28 06/29/18 08:30 80 18 Nasal Cannula 2.0 28 06/29/18 07:41 Nasal Cannula 2.0 06/29/18 05:30 Nasal Cannula 2.0 06/29/18 04:00 97.3 69 19 132/62 (85) 97 97.3 06/29/18 00:00 97.7 75 20 115/61 (79) 98 97.7 06/28/18 21:00 Nasal Cannula 2.0 06/28/18 20:00 98.8 75 19 101/50 (67) 99 98.8 06/28/18 18:49 99 Nasal Cannula 2.0 28 06/28/18 18:49 Nasal Cannula 2.0 28 06/28/18 18:49 77 18 Nasal Cannula 2.0 28 06/28/18 15:50 97.5 65 18 109/56 (73) 98 97.5 06/28/18 11:47 97.9 60 18 106/58 (74) 97 97.9 Intake and Output 06/28/18 06/29/18 19:00 07:00 Intake Total 740.0 ml 400 ml Output Total 950 ml 2000 ml Balance -210.0 ml -1600 ml Intake Oral 400 ml IV Total 740.0 ml Output Urine Total 950 ml 2000 ml # Bowel Movements 2 3 Microbiology Date/Time Source Procedure Growth Status 06/25/18 14:46 Blood Blood Culture - Preliminary NO GROWTH AFTER 72 HOURS Resulted 06/25/18 18:40 Nasal Nares MRSA Culture - Final NO METHICILLIN RESISTANT STAPH AUREUS... Complete 06/26/18 15:10 Indwelling Cath Urine Culture - Final NO GROWTH AFTER 48 HOURS Complete 06/26/18 18:45 Rectum VRE Culture - Final Enterococcus Faecalis - Vre Complete Current Medications Medications (Trade) Dose Ordered Sig/Pérez Route PRN Reason Start Time Stop Time Status Last Admin Dose Admin Acetaminophen (Tylenol) 650 mg Q4H PRN ORAL Mild Pain/Temp > 100.5 06/27/18 18:30 07/27/18 10:29 06/28/18 21:01 Albuterol/ Ipratropium (Albuterol/ Ipratropium) 3 ml Q6H PRN HHN Shortness of Breath 06/27/18 18:00 06/30/18 17:59 Aspirin (ASA) 81 mg DAILY ORAL 06/28/18 09:00 07/26/18 08:59 06/29/18 08:59 Ceftriaxone Sodium 1 gm/ Dextrose 55 ml @ 110 mls/hr Q24H IVPB 06/28/18 10:30 07/03/18 10:29 06/29/18 09:41 Clonidine HCl (Catapres Tab) 0.1 mg Q8H PRN ORAL SBP>170 or DBP>100 06/27/18 18:00 07/25/18 17:59 Divalproex Sodium (Depakote) 500 mg BID ORAL 06/27/18 18:00 07/25/18 21:10 06/29/18 09:00 Docusate Sodium (Colace) 100 mg TID ORAL 06/27/18 18:00 07/26/18 08:59 06/29/18 08:59 Duloxetine HCl (Cymbalta) 30 mg DAILY ORAL 06/28/18 09:00 07/26/18 08:59 06/29/18 08:59 Ergocalciferol (Drisdol) 50,000 intlu ONCE A WEEK ORAL 07/02/18 09:00 07/25/18 20:59 Finasteride (Proscar) 5 mg DAILY ORAL 06/28/18 09:00 07/26/18 08:59 06/29/18 09:00 Mineral Oil (Fleet's Mineral Oil Enema) 133 ml DAILYPRN PRN RECTAL Constipation 06/27/18 18:00 07/25/18 17:59 Multivitamins Therapeutic (Therapeutic Multivitamin) 1 ea DAILY ORAL 06/28/18 09:00 07/26/18 08:59 06/29/18 08:59 Pantoprazole (Protonix) 40 mg DAILY ORAL 06/28/18 09:00 07/26/18 08:59 06/29/18 09:00 Risperidone (RisperDAL) 0.5 mg Q24H ORAL 06/28/18 09:00 07/26/18 08:59 06/29/18 09:02 Sennosides (Senokot) 1 tab BID ORAL 06/27/18 18:00 07/26/18 08:59 06/29/18 08:59 Tamsulosin HCl (Flomax) 0.4 mg Q12HR ORAL 06/27/18 21:00 07/27/18 20:59 06/29/18 09:00 Thiamine HCl (Vitamin B1) 100 mg DAILY ORAL 06/28/18 09:00 07/26/18 08:59 06/29/18 09:00 Laboratory Tests 06/29/18 09:45: White Blood Count [Pending], Red Blood Count [Pending], Hemoglobin [Pending], Hematocrit [Pending], Mean Corpuscular Volume [Pending], Mean Corpuscular Hemoglobin [Pending], Mean Corpuscular Hemoglobin Concent [Pending], Red Cell Distribution Width [Pending], Platelet Count [Pending], Mean Platelet Volume [ Pending], Neutrophils (%) (Auto) [Pending], Lymphocytes (%) (Auto) [Pending], Monocytes (%) (Auto) [Pending], Eosinophils (%) (Auto) [Pending], Basophils (%) (Auto) [Pending], Sodium Level [Pending], Potassium Level [Pending], Chloride Level [Pending], Carbon Dioxide Level [Pending], Blood Urea Nitrogen [Pending], Creatinine [Pending], Estimat Glomerular Filtration Rate [Pending], Glucose Level [Pending], Uric Acid [Pending], Calcium Level [Pending], Phosphorus Level [Pending], Magnesium Level [Pending], Total Bilirubin [Pending], Aspartate Amino Transf (AST/SGOT) [Pending], Alanine Aminotransferase (ALT/SGPT) [Pending] , Alkaline Phosphatase [Pending], Total Protein [Pending], Albumin [Pending], Globulin [Pending] Height (Feet): 6 Height (Inches): 10.00 Weight (Pounds): 195 Objective exam stable, urine tyrese RICHIE PERRIN Jun 29, 2018 10:11
[2018-06-29 10:19] LABS: ANION GAP 3 mmol/L (5-15); BLOOD UREA NITROGEN 7 mg/dL (7-18); CARBON DIOXIDE 34 MMOL/L (21-32); CHLORIDE 108 MMOL/L (98-107); CREATININE 0.8 MG/DL (0.55-1.30); POTASSIUM 4.5 MMOL/L (3.5-5.1); SODIUM 145 MMOL/L (136-145)
[2018-06-29 10:22] LABS: ALANINE AMINOTRANSFERASE 11 U/L (12-78); ALBUMIN 2.4 G/DL (3.4-5.0); ALBUMIN/GLOBULIN RATIO 0.8 (1.0-2.7); ALKALINE PHOSPHATASE 72 U/L (46-116); ASPARTATE AMINO TRANSFERASE 10 U/L (15-37); BILIRUBIN,TOTAL 0.2 MG/DL (0.2-1.0); PHOSPHORUS 2.6 MG/DL (2.5-4.9)
[2018-06-29 10:51] LABS: BASOPHILS % (AUTO) 1.3 % (0.0-2.0); EOSINOPHILS % (AUTO) 1.3 % (0.0-3.0); HEMATOCRIT 38.9 % (42.0-52.0); HEMOGLOBIN 12.6 G/DL (14.2-18.0); LYMPHOCYTES % (AUTO) 53.6 % (20.0-45.0); MEAN CORPUSCULAR VOLUME 93 FL (80-99); MONOCYTES % (AUTO) 4.4 % (1.0-10.0); NEUTROPHILS % (AUTO) 39.4 % (45.0-75.0); PLATELET COUNT 159 K/UL (150-450); RED BLOOD COUNT 4.19 M/UL (4.70-6.10); WHITE BLOOD COUNT 12.9 K/UL (4.8-10.8)
--- NOTE | 2018-06-29 10:53 | General Progress Note ---
Assessment/Plan Status: progressing Assessment/Plan 1) MOISES on CKD -Nephrology input appreciated follow electrolytes and creatinine after catheterization- improving Urology assistance appreciated replete as needed avoid nephrotoxins/renally dose meds 2) UTI/leukocytosis/rule out sepsis -pyuria and leukocytosis noted- ceftriaxone started; gent added -lactic acid normalized -wbc improving -afebrile -urine culture neg; Blood culture / coag neg staph- likelly contaminant 2) HTN -continue meds -Nephrology assistance appreciated 3): Seizure disorder -continue meds 4)Depression/cognitive impairment/encephalopathy -Psych consult/recs appreciated DVT Prophylaxis: scd Code status: full Hospital Classification declaration: Based on this initial evaluation, and depending on the patient's clinical course, I anticipate that this patient will require hospitalization for 2-3 days. Disposition: Once the patient is stable to leave the hospital, I anticipate the patient will likely be discharged to the following environment:SNF I spent 45 minutes on this patient's case, and 23 minutes was dedicated to counseling and/or care coordination. Time of note may not reflect time of encounter. Subjective Date patient seen: Jun 29, 2018 Time patient seen: 12:02 ROS Limited/Unobtainable: Yes Constitutional: Reports: no symptoms, weakness HEENT: Reports: no symptoms Cardiovascular: Reports: no symptoms Respiratory: Reports: no symptoms Gastrointestinal/Abdominal: Reports: no symptoms Genitourinary: Reports: no symptoms Neurologic/Psychiatric: Reports: no symptoms Endocrine: Reports: no symptoms Hematologic/Lymphatic: Reports: no symptoms Allergies: Coded Allergies: No Known Allergies (Unverified , 06/25/18) All Systems: reviewed and negative except above Subjective Events of overnight noted Chart reviewed Catheter with good urine output Symptoms improving Patient resting comfortably in room Objective Last 24 Hour Vital Signs Date Time Temp Pulse Resp B/P (MAP) Pulse Ox O2 Delivery O2 Flow Rate FiO2 06/29/18 08:40 98.0 77 18 113/74 (87) 98 98.0 06/29/18 08:30 Nasal Cannula 2.0 28 06/29/18 08:30 98 Nasal Cannula 2.0 28 06/29/18 08:30 80 18 Nasal Cannula 2.0 28 06/29/18 07:41 Nasal Cannula 2.0 06/29/18 05:30 Nasal Cannula 2.0 06/29/18 04:00 97.3 69 19 132/62 (85) 97 97.3 06/29/18 00:00 97.7 75 20 115/61 (79) 98 97.7 06/28/18 21:00 Nasal Cannula 2.0 06/28/18 20:00 98.8 75 19 101/50 (67) 99 98.8 06/28/18 18:49 99 Nasal Cannula 2.0 28 06/28/18 18:49 Nasal Cannula 2.0 28 06/28/18 18:49 77 18 Nasal Cannula 2.0 28 06/28/18 15:50 97.5 65 18 109/56 (73) 98 97.5 06/28/18 11:47 97.9 60 18 106/58 (74) 97 97.9 Intake and Output 06/28/18 06/29/18 19:00 07:00 Intake Total 740.0 ml 400 ml Output Total 950 ml 2000 ml Balance -210.0 ml -1600 ml Intake Oral 400 ml IV Total 740.0 ml Output Urine Total 950 ml 2000 ml # Bowel Movements 2 3 Laboratory Tests 06/29/18 09:45: White Blood Count [Pending], Red Blood Count [Pending], Hemoglobin [Pending], Hematocrit [Pending], Mean Corpuscular Volume [Pending], Mean Corpuscular Hemoglobin [Pending], Mean Corpuscular Hemoglobin Concent [Pending], Red Cell Distribution Width [Pending], Platelet Count [Pending], Mean Platelet Volume [ Pending], Neutrophils (%) (Auto) [Pending], Lymphocytes (%) (Auto) [Pending], Monocytes (%) (Auto) [Pending], Eosinophils (%) (Auto) [Pending], Basophils (%) (Auto) [Pending], Sodium Level 145, Potassium Level 4.5, Chloride Level 108H, Carbon Dioxide Level 34H, Anion Gap 3L, Blood Urea Nitrogen 7, Creatinine 0.8, Estimat Glomerular Filtration Rate , Glucose Level 179H, Uric Acid 5.2, Calcium Level 9.0, Phosphorus Level 2.6, Magnesium Level 1.7L, Total Bilirubin 0.2, Aspartate Amino Transf (AST/SGOT) 10L, Alanine Aminotransferase (ALT/SGPT) 11L, Alkaline Phosphatase 72, Total Protein 5.5L, Albumin 2.4L, Globulin 3.1, Albumin /Globulin Ratio 0.8L Height (Feet): 6 Height (Inches): 10.00 Weight (Pounds): 195 General Appearance: no apparent distress, lethargic, confused, thin EENT: PERRL/EOMI, TMs normal, pharynx normal Neck: non-tender, supple Cardiovascular: normal peripheral pulses, normal rate, regular rhythm Respiratory/Chest: chest wall non-tender, lungs clear Abdomen: normal bowel sounds, non tender, soft Pelvis: normal external exam Genitourinary/Rectal: other - preston Extremities: normal range of motion, non-tender Edema: no edema noted Arm (L), no edema noted Arm (R) Edema: trace edema Neurologic: disoriented Lymphatic: normal anterior cervical (L), normal anterior cervical (R) Blaine Villa M.D. Jun 29, 2018 10:53
[2018-06-29 11:54] VITALS: BP 116/69
--- NOTE | 2018-06-29 12:04 | General Progress Note ---
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0 06/29/18 04:00 97.3 69 19 132/62 (85) 97 97.3 06/29/18 00:00 97.7 75 20 115/61 (79) 98 97.7 06/28/18 21:00 Nasal Cannula 2.0 06/28/18 20:00 98.8 75 19 101/50 (67) 99 98.8 06/28/18 18:49 99 Nasal Cannula 2.0 28 06/28/18 18:49 Nasal Cannula 2.0 28 06/28/18 18:49 77 18 Nasal Cannula 2.0 28 06/28/18 15:50 97.5 65 18 109/56 (73) 98 97.5 Intake and Output 06/28/18 06/29/18 19:00 07:00 Intake Total 740.0 ml 400 ml Output Total 950 ml 2000 ml Balance -210.0 ml -1600 ml Intake Oral 400 ml IV Total 740.0 ml Output Urine Total 950 ml 2000 ml # Bowel Movements 2 3 Laboratory Tests 06/29/18 09:45: White Blood Count 12.9H, Red Blood Count 4.19L, Hemoglobin 12.6L, Hematocrit 38.9L, Mean Corpuscular Volume 93, Mean Corpuscular Hemoglobin 30.2, Mean Corpuscular Hemoglobin Concent 32.5, Red Cell Distribution Width 12.0, Platelet Count 159, Mean Platelet Volume 6.3L, Neutrophils (%) (Auto) 39.4L, Lymphocytes (%) (Auto) 53.6H, Monocytes (%) (Auto) 4.4, Eosinophils (%) (Auto) 1.3, Basophils (%) (Auto) 1.3, Sodium Level 145, Potassium Level 4.5, Chloride Level 108H, Carbon Dioxide Level 34H, Anion Gap 3L, Blood Urea Nitrogen 7, Creatinine 0.8, Estimat Glomerular Filtration Rate , Glucose Level 179H, Uric Acid 5.2, Calcium Level 9.0, Phosphorus Level 2.6, Magnesium Level 1.7L, Total Bilirubin 0.2, Aspartate Amino Transf (AST/SGOT) 10L, Alanine Aminotransferase (ALT/SGPT) 11L, Alkaline Phosphatase 72, Total Protein 5.5L, Albumin 2.4L, Globulin 3.1, Albumin/Globulin Ratio 0.8L Height (Feet): 6 Height (Inches): 10.00 Weight (Pounds): 195 Mary Butler MD Jun 29, 2018 12:03
[2018-06-29 15:51] VITALS: BP 112/48
[2018-06-29 20:00] VITALS: BP 129/68
--- NOTE | 2018-06-29 21:15 | Progress Note ---
DATE: 06/29/2018 SUBJECTIVE: The patient's mental condition improving, more alert and able to answer the questions. MENTAL STATUS EXAMINATION: The patient is alert and oriented times self, place. Mood is neutral. Still has waxing and waning consciousness. Affect is constricted. Congruent with mood. Thought process is concrete. Thought content, no suicidal or homicidal ideation. ASSESSMENT: 1. Encephalopathy. 2. Cognitive impairment. PLAN: 1. We will continue the risperidone. 2. Provide the patient with reality orientation and supportive therapy. 3. The patient was started on risperidone before admission to the hospital. 4. The patient would like to continue medication. Mary Butler M.D. DR: Benny JOB#: [id number] CC:
[2018-06-30] VITALS: BP 134/83
[2018-06-30 04:00] VITALS: BP 136/62
[2018-06-30 08:13] VITALS: BP 110/69
[2018-06-30] MEDS: Aspirin Baby 81mg ORAL SCH (09:09)
[2018-06-30] MEDS: Docusate 100mg cap ORAL SCH ×3 (09:09→17:58)
[2018-06-30] MEDS: Depakote 500mg tab ORAL SCH ×2 (09:10→17:58)
[2018-06-30] MEDS: DULoxetine 30mg cap ORAL SCH (09:10)
[2018-06-30] MEDS: Tamsulosin 0.4mg cap ORAL SCH ×2 (09:10→20:07)
[2018-06-30] MEDS: Thiamine 100mg tab ORAL SCH (09:11)
[2018-06-30] MEDS: Multivitamin w/Minerals tab ORAL SCH (09:11)
[2018-06-30] MEDS: Sennosides 8.6mg ORAL SCH ×2 (09:13→17:59)
--- NOTE | 2018-06-30 09:21 | Urology Progress Note ---
Assessment/Plan Assessment/Plan 1. Urinary retention. 2. Benign prostatic hypertrophy. 3. Possible neurogenic bladder. 4. Renal insufficiency, which appears to be acute on chronic, improved. 5. Hematuria. 6. Mild pyuria. 7. Hydronephrosis. 8. Paraphimosis. keep preston indwelling hand irrigated and do PRN monitor renal fxn cont with flomax and proscar cysto later restraints PRN, hopefully pt won't pull on preston d/w nursing staff Subjective Allergies: Coded Allergies: No Known Allergies (Unverified , 06/25/18) Subjective all noted, a bit more alert Objective Last 24 Hour Vital Signs Date Time Temp Pulse Resp B/P (MAP) Pulse Ox O2 Delivery O2 Flow Rate FiO2 06/30/18 08:13 97.0 76 20 110/69 (83) 97 97.0 06/30/18 04:00 97.2 63 17 136/62 (86) 96 97.2 06/30/18 00:00 97.5 73 18 134/83 (100) 96 97.5 06/29/18 21:00 Room Air 06/29/18 20:00 98.5 72 17 129/68 (88) 95 98.5 06/29/18 19:39 97 Room Air 21 06/29/18 19:39 Room Air 21 06/29/18 19:39 78 18 Room Air 21 06/29/18 15:51 96.6 67 18 112/48 (69) 98 96.6 06/29/18 11:54 98.4 75 18 116/69 (85) 98 98.4 Intake and Output 06/29/18 06/30/18 19:00 07:00 Intake Total 835 ml 480 ml Output Total 1400 ml 3500 ml Balance -565 ml -3020 ml Intake Oral 780 ml 480 ml IV Total 55 ml Output Urine Total 1400 ml 3500 ml # Bowel Movements 1 1 Microbiology Date/Time Source Procedure Growth Status 06/25/18 14:46 Blood Blood Culture - Final Staphylococcus Sp Coag Neg Complete 06/25/18 18:40 Nasal Nares MRSA Culture - Final NO METHICILLIN RESISTANT STAPH AUREUS... Complete 06/26/18 15:10 Indwelling Cath Urine Culture - Final NO GROWTH AFTER 48 HOURS Complete 06/26/18 18:45 Rectum VRE Culture - Final Enterococcus Faecalis - Vre Complete Current Medications Medications (Trade) Dose Ordered Sig/Pérez Route PRN Reason Start Time Stop Time Status Last Admin Dose Admin Acetaminophen (Tylenol) 650 mg Q4H PRN ORAL Mild Pain/Temp > 100.5 06/27/18 18:30 07/27/18 10:29 06/29/18 21:00 Albuterol/ Ipratropium (Albuterol/ Ipratropium) 3 ml Q6H PRN HHN Shortness of Breath 06/27/18 18:00 06/30/18 17:59 Aspirin (ASA) 81 mg DAILY ORAL 06/28/18 09:00 07/26/18 08:59 06/29/18 08:59 Ceftriaxone Sodium 1 gm/ Dextrose 55 ml @ 110 mls/hr Q24H IVPB 06/28/18 10:30 07/03/18 10:29 06/29/18 09:41 Clonidine HCl (Catapres Tab) 0.1 mg Q8H PRN ORAL SBP>170 or DBP>100 06/27/18 18:00 07/25/18 17:59 Divalproex Sodium (Depakote) 500 mg BID ORAL 06/27/18 18:00 07/25/18 21:10 06/29/18 17:07 Docusate Sodium (Colace) 100 mg TID ORAL 06/27/18 18:00 07/26/18 08:59 06/29/18 17:07 Duloxetine HCl (Cymbalta) 30 mg DAILY ORAL 06/28/18 09:00 07/26/18 08:59 06/29/18 08:59 Ergocalciferol (Drisdol) 50,000 intlu ONCE A WEEK ORAL 07/02/18 09:00 07/25/18 20:59 Finasteride (Proscar) 5 mg DAILY ORAL 06/28/18 09:00 07/26/18 08:59 06/29/18 09:00 Mineral Oil (Fleet's Mineral Oil Enema) 133 ml DAILYPRN PRN RECTAL Constipation 06/27/18 18:00 07/25/18 17:59 Multivitamins Therapeutic (Therapeutic Multivitamin) 1 ea DAILY ORAL 06/28/18 09:00 07/26/18 08:59 06/29/18 08:59 Pantoprazole (Protonix) 40 mg DAILY ORAL 06/28/18 09:00 07/26/18 08:59 06/29/18 09:00 Risperidone (RisperDAL) 0.5 mg Q24H ORAL 06/28/18 09:00 07/26/18 08:59 06/29/18 09:02 Sennosides (Senokot) 1 tab BID ORAL 06/27/18 18:00 07/26/18 08:59 06/29/18 17:07 Tamsulosin HCl (Flomax) 0.4 mg Q12HR ORAL 06/27/18 21:00 07/27/18 20:59 06/29/18 20:59 Thiamine HCl (Vitamin B1) 100 mg DAILY ORAL 06/28/18 09:00 07/26/18 08:59 06/29/18 09:00 Laboratory Tests 06/29/18 09:45: White Blood Count 12.9H, Red Blood Count 4.19L, Hemoglobin 12.6L, Hematocrit 38.9L, Mean Corpuscular Volume 93, Mean Corpuscular Hemoglobin 30.2, Mean Corpuscular Hemoglobin Concent 32.5, Red Cell Distribution Width 12.0, Platelet Count 159, Mean Platelet Volume 6.3L, Neutrophils (%) (Auto) 39.4L, Lymphocytes (%) (Auto) 53.6H, Monocytes (%) (Auto) 4.4, Eosinophils (%) (Auto) 1.3, Basophils (%) (Auto) 1.3, Sodium Level 145, Potassium Level 4.5, Chloride Level 108H, Carbon Dioxide Level 34H, Anion Gap 3L, Blood Urea Nitrogen 7, Creatinine 0.8, Estimat Glomerular Filtration Rate , Glucose Level 179H, Uric Acid 5.2, Calcium Level 9.0, Phosphorus Level 2.6, Magnesium Level 1.7L, Total Bilirubin 0.2, Aspartate Amino Transf (AST/SGOT) 10L, Alanine Aminotransferase (ALT/SGPT) 11L, Alkaline Phosphatase 72, Total Protein 5.5L, Albumin 2.4L, Globulin 3.1, Albumin/Globulin Ratio 0.8L Height (Feet): 6 Height (Inches): 10.00 Weight (Pounds): 195 Objective exam stable, urine tyrese BAMSHAD,RICHIE Jun 30, 2018 09:21
--- NOTE | 2018-06-30 09:37 | Nephrology Progress Note ---
Assessment/Plan Problem List: (1) Bladder outlet obstruction (2) Acute renal failure (ARF) Assessment: Cr lower after preston (3) Hydronephrosis (4) Leukocytosis Assessment: declining Assessment WBCs lowering- 1. Urinary retention. 2. Benign prostatic hypertrophy. 3. Possible neurogenic bladder. 4. Renal insufficiency, which appears to be acute on chronic. 5. Hematuria. 6. Mild pyuria. 7. Hydronephrosis. 8. Paraphimosis. Plan mag supp po on Rocehin- Mag and K and phos supplement as needed bolus IV as needed adjust BP meds- monitor renal parameters monitor WBCs urine culture med-surg DC planning Subjective ROS Limited/Unobtainable: No Constitutional: Reports: malaise Objective Objective Last 24 Hour Vital Signs Date Time Temp Pulse Resp B/P (MAP) Pulse Ox O2 Delivery O2 Flow Rate FiO2 06/30/18 09:25 Room Air 06/30/18 08:13 97.0 76 20 110/69 (83) 97 97.0 06/30/18 04:00 97.2 63 17 136/62 (86) 96 97.2 06/30/18 00:00 97.5 73 18 134/83 (100) 96 97.5 06/29/18 21:00 Room Air 06/29/18 20:00 98.5 72 17 129/68 (88) 95 98.5 06/29/18 19:39 97 Room Air 21 06/29/18 19:39 Room Air 21 06/29/18 19:39 78 18 Room Air 21 06/29/18 15:51 96.6 67 18 112/48 (69) 98 96.6 06/29/18 11:54 98.4 75 18 116/69 (85) 98 98.4 Intake and Output 06/29/18 06/30/18 19:00 07:00 Intake Total 835 ml 480 ml Output Total 1400 ml 3500 ml Balance -565 ml -3020 ml Intake Oral 780 ml 480 ml IV Total 55 ml Output Urine Total 1400 ml 3500 ml # Bowel Movements 1 1 Laboratory Tests 06/29/18 09:45: White Blood Count 12.9H, Red Blood Count 4.19L, Hemoglobin 12.6L, Hematocrit 38.9L, Mean Corpuscular Volume 93, Mean Corpuscular Hemoglobin 30.2, Mean Corpuscular Hemoglobin Concent 32.5, Red Cell Distribution Width 12.0, Platelet Count 159, Mean Platelet Volume 6.3L, Neutrophils (%) (Auto) 39.4L, Lymphocytes (%) (Auto) 53.6H, Monocytes (%) (Auto) 4.4, Eosinophils (%) (Auto) 1.3, Basophils (%) (Auto) 1.3, Sodium Level 145, Potassium Level 4.5, Chloride Level 108H, Carbon Dioxide Level 34H, Anion Gap 3L, Blood Urea Nitrogen 7, Creatinine 0.8, Estimat Glomerular Filtration Rate , Glucose Level 179H, Uric Acid 5.2, Calcium Level 9.0, Phosphorus Level 2.6, Magnesium Level 1.7L, Total Bilirubin 0.2, Aspartate Amino Transf (AST/SGOT) 10L, Alanine Aminotransferase (ALT/SGPT) 11L, Alkaline Phosphatase 72, Total Protein 5.5L, Albumin 2.4L, Globulin 3.1, Albumin/Globulin Ratio 0.8L Height (Feet): 6 Height (Inches): 10.00 Weight (Pounds): 195 General Appearance: no apparent distress Genitourinary/Rectal: other - preston in Objective no change in physical exam Shaun Khan MD Jun 30, 2018 09:37
[2018-06-30] MEDS: cefTRIAXone 1 GM in D5W 55 ML IVPB SCH (10:29)
[2018-06-30 11:33] VITALS: BP 121/70
[2018-06-30] MEDS: Magnesium Oxide 400mg tab ORAL SCH ×2 (13:04→17:58)
--- NOTE | 2018-06-30 13:38 | General Progress Note ---
Assessment/Plan Status: progressing Assessment/Plan 1) MOISES on CKD -Nephrology input appreciated follow electrolytes and creatinine after catheterization- improving Urology assistance appreciated replete as needed avoid nephrotoxins/renally dose meds 2) UTI/leukocytosis/rule out sepsis -pyuria and leukocytosis noted- ceftriaxone started; gent added -lactic acid normalized -wbc improving -afebrile -urine culture neg; Blood culture / coag neg staph- likelly contaminant 2) HTN -continue meds -Nephrology assistance appreciated 3): Seizure disorder -continue meds 4)Depression/cognitive impairment/encephalopathy -Psych consult/recs appreciated DVT Prophylaxis: scd Code status: full Hospital Classification declaration: Based on this initial evaluation, and depending on the patient's clinical course, I anticipate that this patient will require hospitalization for 2-3 days. Disposition: Once the patient is stable to leave the hospital, I anticipate the patient will likely be discharged to the following environment:SNF I spent 45 minutes on this patient's case, and 23 minutes was dedicated to counseling and/or care coordination. Time of note may not reflect time of encounter. Subjective Date patient seen: Jun 30, 2018 Time patient seen: 13:40 ROS Limited/Unobtainable: Yes Constitutional: Reports: no symptoms HEENT: Reports: no symptoms Cardiovascular: Reports: no symptoms Respiratory: Reports: no symptoms Genitourinary: Reports: burning, pain Neurologic/Psychiatric: Reports: no symptoms Endocrine: Reports: no symptoms Hematologic/Lymphatic: Reports: no symptoms Allergies: Coded Allergies: No Known Allergies (Unverified , 06/25/18) All Systems: reviewed and negative except above Subjective Events of overnight noted Chart reviewed Catheter draining urine Symptoms improving Patient resting comfortably in room Objective Last 24 Hour Vital Signs Date Time Temp Pulse Resp B/P (MAP) Pulse Ox O2 Delivery O2 Flow Rate FiO2 06/30/18 11:33 97.3 74 18 121/70 (87) 97 97.3 06/30/18 10:52 Room Air 21 06/30/18 10:52 97 Room Air 21 06/30/18 10:51 77 20 Room Air 21 06/30/18 09:25 Room Air 06/30/18 08:13 97.0 76 20 110/69 (83) 97 97.0 06/30/18 04:00 97.2 63 17 136/62 (86) 96 97.2 06/30/18 00:00 97.5 73 18 134/83 (100) 96 97.5 06/29/18 21:00 Room Air 06/29/18 20:00 98.5 72 17 129/68 (88) 95 98.5 06/29/18 19:39 97 Room Air 21 06/29/18 19:39 Room Air 21 06/29/18 19:39 78 18 Room Air 21 06/29/18 15:51 96.6 67 18 112/48 (69) 98 96.6 Intake and Output 06/29/18 06/30/18 19:00 07:00 Intake Total 835 ml 480 ml Output Total 1400 ml 3500 ml Balance -565 ml -3020 ml Intake Oral 780 ml 480 ml IV Total 55 ml Output Urine Total 1400 ml 3500 ml # Bowel Movements 1 1 Height (Feet): 6 Height (Inches): 10.00 Weight (Pounds): 195 General Appearance: no apparent distress, alert EENT: PERRL/EOMI, TMs normal Neck: non-tender, supple Cardiovascular: normal peripheral pulses, normal rate, regular rhythm Respiratory/Chest: chest wall non-tender, lungs clear Abdomen: normal bowel sounds, non tender, soft Pelvis: normal external exam Genitourinary/Rectal: other - +Hernandez Extremities: normal range of motion Edema: no edema noted Arm (L), no edema noted Arm (R) Edema: trace edema Neurologic: alert Lymphatic: normal anterior cervical (L), normal anterior cervical (R) Blaine Villa M.D. Jun 30, 2018 13:38
[2018-06-30 16:00] VITALS: BP 110/55
[2018-06-30 20:00] VITALS: BP 103/55
[2018-07-01] VITALS: BP 109/65
[2018-07-01 04:00] VITALS: BP 104/57
[2018-07-01 08:23] VITALS: BP 103/67
[2018-07-01] MEDS: Docusate 100mg cap ORAL SCH ×2 (08:26→12:52)
[2018-07-01] MEDS: Aspirin Baby 81mg ORAL SCH (08:26)
[2018-07-01] MEDS: DULoxetine 30mg cap ORAL SCH (08:26)
[2018-07-01] MEDS: Magnesium Oxide 400mg tab ORAL SCH ×2 (08:27→12:52)
[2018-07-01] MEDS: Depakote 500mg tab ORAL SCH (08:27)
[2018-07-01] MEDS: Tamsulosin 0.4mg cap ORAL SCH (08:27)
[2018-07-01] MEDS: Sennosides 8.6mg ORAL SCH (08:28)
[2018-07-01] MEDS: Multivitamin w/Minerals tab ORAL SCH (08:28)
[2018-07-01] MEDS: Thiamine 100mg tab ORAL SCH (08:28)
--- NOTE | 2018-07-01 09:48 | Urology Progress Note ---
Assessment/Plan Assessment/Plan 1. Urinary retention. 2. Benign prostatic hypertrophy. 3. Possible neurogenic bladder. 4. Renal insufficiency, which appears to be acute on chronic, improved. 5. Hematuria. 6. Mild pyuria. 7. Hydronephrosis. 8. Paraphimosis. keep preston indwelling hand irrigated and do PRN monitor renal fxn cont with flomax and proscar cysto later restraints PRN, hopefully pt won't pull on preston d/w nursing staff d/w Dr. Villa Subjective Allergies: Coded Allergies: No Known Allergies (Unverified , 06/25/18) Subjective all noted, a bit more alert Objective Last 24 Hour Vital Signs Date Time Temp Pulse Resp B/P (MAP) Pulse Ox O2 Delivery O2 Flow Rate FiO2 07/01/18 09:23 97.5 07/01/18 08:47 Room Air 07/01/18 08:23 97.5 80 18 103/67 (79) 98 97.5 07/01/18 04:00 97.0 85 20 104/57 (73) 96 97.0 07/01/18 00:00 98.1 75 18 109/65 (80) 95 98.1 06/30/18 21:06 98.1 06/30/18 21:00 Room Air 06/30/18 20:00 98.1 72 17 103/55 (71) 98 98.1 06/30/18 19:15 97 Room Air 21 06/30/18 19:15 Room Air 21 06/30/18 19:14 78 20 Room Air 21 06/30/18 16:00 97.7 82 18 110/55 (73) 96 97.7 06/30/18 11:33 97.3 74 18 121/70 (87) 97 97.3 06/30/18 10:52 Room Air 21 06/30/18 10:52 97 Room Air 21 06/30/18 10:51 77 20 Room Air 21 Intake and Output 06/30/18 07/01/18 19:00 07:00 Intake Total 720 ml Output Total 1150 ml 1900 ml Balance -430 ml -1900 ml Intake Oral 720 ml Output Urine Total 1150 ml 1900 ml # Bowel Movements 4 2 Microbiology Date/Time Source Procedure Growth Status 06/25/18 14:46 Blood Blood Culture - Final Staphylococcus Sp Coag Neg Complete 06/25/18 18:40 Nasal Nares MRSA Culture - Final NO METHICILLIN RESISTANT STAPH AUREUS... Complete 06/26/18 15:10 Indwelling Cath Urine Culture - Final NO GROWTH AFTER 48 HOURS Complete 06/26/18 18:45 Rectum VRE Culture - Final Enterococcus Faecalis - Vre Complete Current Medications Medications (Trade) Dose Ordered Sig/Pérez Route PRN Reason Start Time Stop Time Status Last Admin Dose Admin Acetaminophen (Tylenol) 650 mg Q4H PRN ORAL Mild Pain/Temp > 100.5 06/27/18 18:30 07/27/18 10:29 07/01/18 09:23 Aspirin (ASA) 81 mg DAILY ORAL 06/28/18 09:00 07/26/18 08:59 07/01/18 08:26 Ceftriaxone Sodium 1 gm/ Dextrose 55 ml @ 110 mls/hr Q24H IVPB 06/28/18 10:30 07/03/18 10:29 06/30/18 10:29 Clonidine HCl (Catapres Tab) 0.1 mg Q8H PRN ORAL SBP>170 or DBP>100 06/27/18 18:00 07/25/18 17:59 Divalproex Sodium (Depakote) 500 mg BID ORAL 06/27/18 18:00 07/25/18 21:10 07/01/18 08:27 Docusate Sodium (Colace) 100 mg TID ORAL 06/27/18 18:00 07/26/18 08:59 07/01/18 08:26 Duloxetine HCl (Cymbalta) 30 mg DAILY ORAL 06/28/18 09:00 07/26/18 08:59 07/01/18 08:26 Finasteride (Proscar) 5 mg DAILY ORAL 06/28/18 09:00 07/26/18 08:59 07/01/18 08:27 Magnesium Oxide (Mag-Ox 400mg) 400 mg THREE TIMES A DAY ORAL 06/30/18 13:00 07/30/18 12:59 07/01/18 08:27 Mineral Oil (Fleet's Mineral Oil Enema) 133 ml DAILYPRN PRN RECTAL Constipation 06/27/18 18:00 07/25/18 17:59 Multivitamins Therapeutic (Therapeutic Multivitamin) 1 ea DAILY ORAL 06/28/18 09:00 07/26/18 08:59 8/26/18 08:28 Pantoprazole (Protonix) 40 mg DAILY ORAL 06/28/18 09:00 07/26/18 08:59 07/01/18 08:28 Risperidone (RisperDAL) 0.5 mg Q24H ORAL 06/28/18 09:00 07/26/18 08:59 07/01/18 08:28 Sennosides (Senokot) 1 tab BID ORAL 06/27/18 18:00 07/26/18 08:59 07/01/18 08:28 Tamsulosin HCl (Flomax) 0.4 mg Q12HR ORAL 06/27/18 21:00 07/27/18 20:59 07/01/18 08:27 Thiamine HCl (Vitamin B1) 100 mg DAILY ORAL 06/28/18 09:00 07/26/18 08:59 07/01/18 08:28 Height (Feet): 6 Height (Inches): 10.00 Weight (Pounds): 195 Objective exam stable, urine tyrese RICHIE PERRIN Jul 01, 2018 09:48
[2018-07-01] MEDS: cefTRIAXone 1 GM in D5W 55 ML IVPB SCH (10:24)
[2018-07-01 12:23] VITALS: BP 95/57
--- NOTE | 2018-07-01 12:33 | Nephrology Progress Note ---
Assessment/Plan Problem List: (1) Bladder outlet obstruction (2) Acute renal failure (ARF) Assessment: Cr lower after preston (3) Hydronephrosis (4) Leukocytosis Assessment: declining Assessment WBCs lowering- 1. Urinary retention. 2. Benign prostatic hypertrophy. 3. Possible neurogenic bladder. 4. Renal insufficiency, which appears to be acute on chronic. 5. Hematuria. 6. Mild pyuria. 7. Hydronephrosis. 8. Paraphimosis. Plan no labs mag supp po on Rocehin- Mag and K and phos supplement as needed bolus IV as needed adjust BP meds- monitor renal parameters monitor WBCs urine culture med-surg DC planning Subjective ROS Limited/Unobtainable: No Constitutional: Reports: malaise Objective Objective Last 24 Hour Vital Signs Date Time Temp Pulse Resp B/P (MAP) Pulse Ox O2 Delivery O2 Flow Rate FiO2 07/01/18 12:23 97.0 84 18 95/57 (70) 96 97.0 07/01/18 09:56 Nasal Cannula 2.0 28 07/01/18 09:55 95 Room Air 21 07/01/18 09:54 75 18 Room Air 21 07/01/18 09:23 97.5 07/01/18 08:47 Room Air 07/01/18 08:23 97.5 80 18 103/67 (79) 98 97.5 07/01/18 04:00 97.0 85 20 104/57 (73) 96 97.0 07/01/18 00:00 98.1 75 18 109/65 (80) 95 98.1 06/30/18 21:06 98.1 06/30/18 21:00 Room Air 06/30/18 20:00 98.1 72 17 103/55 (71) 98 98.1 06/30/18 19:15 97 Room Air 21 06/30/18 19:15 Room Air 21 06/30/18 19:14 78 20 Room Air 21 06/30/18 16:00 97.7 82 18 110/55 (73) 96 97.7 Intake and Output 06/30/18 07/01/18 19:00 07:00 Intake Total 720 ml Output Total 1150 ml 1900 ml Balance -430 ml -1900 ml Intake Oral 720 ml Output Urine Total 1150 ml 1900 ml # Bowel Movements 4 2 Height (Feet): 6 Height (Inches): 10.00 Weight (Pounds): 195 General Appearance: no apparent distress Objective no change in physical exam Shaun Khan MD Jul 01, 2018 12:33
[2018-07-01] MEDS ORDERED: COLACE100 MG ORAL (12:51)
[2018-07-01] MEDS ORDERED: FINASTERIDE5 MG ORAL (12:52)
[2018-07-01] MEDS ORDERED: MAG-OX 400400 MG ORAL (12:53)
[2018-07-01] MEDS ORDERED: FLOMAX0.4 MG ORAL (12:55)
[2018-07-01] MEDS ORDERED: ROCEPHIN250 MG IM (13:14)
[2018-07-01] MEDS ORDERED: CEFTRIAXON1 GM/50 ML IV (13:14)
--- NOTE | 2018-07-01 13:50 | Discharge Summary ---
Discharge Summary Hospital Course Date of Admission Jun 25, 2018 at 15:00 Date of Discharge 07/01/2018 Admitting Diagnosis abdominal pain Reason for Hospitalization: Urinary retention/MOISES ELDON Carbajal is a 83 year old male who was admitted on Jun 25, 2018 at 15: 00 for Abdominal Pain Consultations Urology Nephrology Psychiatry Procedures Hernandez catheter insertion Hospital Course Patient was found to be in urinary retention and MOISES Urology consulted; Hernandez catheter placed MOISES improved; Nephrology consulted Patient started on antibiotics for UTI Improved; stable for discharge to SNF Discharge Medications Changed Medications: Ceftriaxone Na/Dextrose,Iso (Ceftriaxone 1 Gm Piggyback) 1 Gm/50 Ml Froz.piggy 1 GM IV DAILY for 7 Days, BAG (Medication details modified) FOR 7 DAYS STARTING ON 07/02/18 Continued Medications: Acetaminophen* (Acetaminophen 325MG Tablet*) 325 Mg Tablet 650 MG ORAL Q4H PRN for For Pain, TAB (This prescription has been renewed) Aspirin* (Aspirin*) 81 Mg Tab.chew 81 MG ORAL DAILY, TAB (This prescription has been renewed) Clonidine Hcl* (Catapres*) 0.1 Mg Tablet 0.1 MG ORAL EVERY 8 HOURS PRN for SBP>170 or DBP>100, TAB (This prescription has been renewed) Divalproex Sodium (Divalproex Sodium) 500 Mg Tablet.dr 500 MG PO BID, TAB (This prescription has been renewed) Docusate Sodium* (Colace*) 100 Mg Capsule 100 MG ORAL THREE TIMES A DAY, CAP (This prescription has been renewed) Duloxetine Hcl* (Cymbalta*) 30 Mg Capsule.dr 30 MG ORAL DAILY, CAP (This prescription has been renewed) Finasteride (Finasteride) 5 Mg Tablet 5 MG ORAL DAILY, #30 TAB 0 Refills (This prescription has been renewed) Magnesium Oxide (Magnesium Oxide) 400 Mg Tablet 400 MG ORAL TID, #30 TAB 0 Refills (This prescription has been renewed) Mineral Oil (Mineral Oil Enema) 133 Ml Enema 133 ML RC DAILY PRN for Constipation, EA (This prescription has been renewed) Multivitamin With Minerals (Multivitamins With Minerals*) 1 Each Tablet 1 TAB ORAL DAILY, TAB (This prescription has been renewed) Pantoprazole* (Protonix*) 40 Mg Tablet.dr 40 MG ORAL DAILY, TAB (This prescription has been renewed) Risperidone* (Risperdal*) 0.5 Mg Tablet 0.5 MG ORAL DAILY, #30 TAB 0 Refills (This prescription has been renewed) Sennosides (Senokot) 8.6 Mg Tablet 8.6 MG PO BID, TAB (This prescription has been renewed) Tamsulosin HCl (Flomax) 0.4 Mg Cap.er.24h 0.4 MG ORAL Q12HR, CAP (This prescription has been renewed) Thiamine Hcl* (Vitamin B-1*) 100 Mg Tablet 100 MG ORAL DAILY, #30 TAB 0 Refills (This prescription has been renewed) Discharge Condition Upon Discharge: stable Discharge Disposition Patient was discharged to SNF Discharge Diagnoses: (1) Abdominal pain (2) Acute renal failure (ARF) (3) Leukocytosis Blaine Villa M.D. Jul 01, 2018 13:50
[2018-07-01 15:04] VITALS: BP 106/77
[2018-07-02] MEDS ORDERED: Vitamin D 50,000 units cap ORAL SCH ×2 (09:00)
== END 2018-07-01 15:10 | DRG 698 ==
LOC: EDBD 13:09 → EMR 13:20 → 2E 15:00 → EDBEDREQ 15:07 → EDBEDREQSVC 15:46 → EDBEDREQ 17:22 → 4W 06-27 17:42
DX: N32.0 Bladder-neck obstruction (principal); G93.40 Encephalopathy, unspecified; N17.9 Acute kidney failure, unspecified; N13.30 Unspecified hydronephrosis; N13.4 Hydroureter; F03.90 Unspecified dementia, unspecified severity, without behavioral disturbance, psychotic disturbance, mood disturbance, and anxiety; I12.9 Hypertensive chronic kidney disease with stage 1 through stage 4 chronic kidney disease, or unspecified chronic kidney disease; N18.9 Chronic kidney disease, unspecified; N40.1 Benign prostatic hyperplasia with lower urinary tract symptoms; R33.8 Other retention of urine; N31.9 Neuromuscular dysfunction of bladder, unspecified; N47.2 Paraphimosis; F32.9 Major depressive disorder, single episode, unspecified; G40.909 Epilepsy, unspecified, not intractable, without status epilepticus
CPT/HCPCS: 36415; 71045; 74176; 76770; 80053; 80061; 81003; 82550; 82607; 82728; 82746; 82977; 83036; 83540; 83550; 83605; 83690; 83735; 83880; 84100; 84443; 84550; 85007; 85025; 86140; 87040; 87081; 87086; 87181; 93005; 94664; 94760; 99285